=== PATIENT | male | born 1945 | race Caucasian/White ===

== ENCOUNTER 2017-04-03 09:45 | Outpatient (CLI) | payer MEDICARE, OTHER ==
--- NOTE | ~2017-04-03 | HEMODYNAMI ---
PATIENT:JOSÉ MIGUEL SANDERS MEDICAL RECORD: [id number] : 49 LOCATION:DBluCAT ADMISSION DATE: 04/03/17 Generatedon:04/03/201714:14 Patient name: JOSÉ MIGUEL SNADERS Patient #: [id number] SSN: DO B: 1945 Date of study: 04/03/2017 Page: Of Hemodynamic Procedure Report Patient Data Patient Demographics Procedure consent was obtained First Name: JOSÉ MIGUEL Gender: Male Last Name: TOMMY : 1945 [facility] Initial: DANIELLE Age: 71 year(s) Patient #: [id number] Race: Unknown Additional ID: [id number] Contact details Address: [place] [address] State: [place] City: [place] Zip code: [address] Admission Admission Data Admission Date: 04/03/2017 Admission Time: 9:45 Procedure Procedure Types Cath Procedure Diagnostic Procedure LHC LHC w/Coronaries Miscellaneous Procedures Moderate Sedation up to 15 minutes Procedure Description Procedure Date Procedure Date: 04/03/2017 Procedure Start Time: 13:55 Procedure End Time: 14:13 Procedure Staff Name Function Marvin Cooper MD Performing Physician Alyssa Marc RN Nurse Deidra Alatorre RN Nurse Fahad España RT Monitor Irina Augustine RT Scrub Procedure Data Cath Procedure Fluoroscopy Diagnostic fluoroscopy Total fluoroscopy Time: 1.6 time: 1.6 min min Diagnostic fluoroscopy Total fluoroscopy dose: 495 dose: 495 mGy mGy Contrast Material Contrast Material Type Amount (ml) Isovue 300 61 Entry Location Entry Primary Successful Side Size Upsize Upsize Entry Closure Succes sful Closure Location (Fr) 1 (Fr) 2 (Fr) Remarks Device Remarks Femoral Right 5 Fr Exoseal artery Estimated blood loss: 10 ml Diagnostic catheters Device Type Used For End Catheter Placement Cordis 5Fr JL 4.0 Procedure Catheter (MP) Cordis 5Fr 3DRC Catheter Procedure (MP) Cordis 5Fr Pigtail Procedure Catheter (MP) Procedure Complications No complications Procedure Medications Medication Administration Route Dosage 0.9% NaCl I.V. 100 ml/hr Oxygen NC 2 l/min Heparin Flush Bag added to field 2 bags (1000units/500ml NS) Lidocaine 2% added to field 20 Versed I.V. 2 mg Fentanyl I.V. 50 mcg Fentanyl I.V. 50 mcg Versed I.V. 1 mg Fentanyl I.V. 50 mcg Hemodynamics Rest Heart Rate: 46 (bpm) Pressure Samples Time Site Value (mmHg) Purpose Heart Use Rate(bpm) 13:57 AO 108/61(80) Snapshot 44 14:01 LV 112/11,13 Snapshot 49 Gradients Valve Time Site Site Mean SEP/DFP Peak To Heart Use 1 2 (mmHg) (sec/min) Peak Rate (mmHg) (bpm) Aortic 14:02 LV AO 49 Snapshots Pre Cath Intra NCS Post Cath Vital Signs Time Heart Resp SPO2 etCO2 NIBP (mmHg) Rhythm Pain Sedation Rate (ipm) (%) (mmHg) Status Level (bpm) 13:21:20 46 23 98 29.9 149/77(119) NSR 0 (11) 10(A) , No pain 13:25:44 43 18 96 30.7 132/67(122) NSR 0 (11) 10(A) , No pain 13:30:01 42 23 94 37.4 126/68(106) NSR 0 (11) 10(A) , No pain 13:34:15 42 14 95 24.7 114/71(89) NSR 0 (11) 10(A) , No pain 13:38:27 43 12 94 0.7 107/66(84) NSR 0 (11) 10(A) , No pain 13:43:28 43 12 93 0 106/69(88) NSR 0 (11) 10(A) , No pain 13:48:29 38 15 95 33.7 115/64(98) NSR 0 (11) 10(A) , No pain 13:52:40 39 14 94 27.7 116/65(96) NSR 0 (11) 10(A) , No pain 13:56:48 41 12 94 33.6 115/65(87) NSR 0 (11) 10(A) , No pain 14:00:58 48 14 93 8.9 108/69(83) NSR 0 (11) 9(A) , No pain 14:05:00 46 12 94 11.2 109/69(85) NSR 0 (11) 9(A) , No pain 14:09:47 45 15 95 35.9 112/69(97) NSR 0 (11) 9(A) , No pain 14:11:15 44 16 94 35.9 111/70(89) NSR 0 (11) 10(A) , No pain Medications Time Medication Route Dose Verified Delivered Reason Notes Effe ctiveness by by 13:11:29 0.9% NaCl I.V. 100 Marvin Buffie used for ml/hr [place] Marc outsewer 13:11:46 Oxygen NC 2 Marvin Buffie used for l/min [place] Marc outsewer 13:12:39 Heparin Flush added 2 Marvin Buffie used for Bag to bags [place] Marc outsewer (1000units/500ml field RHODES NS) 13:13:24 Lidocaine 2% added 20ml Marvin Marvin for local to vial [facility] anesthetic field MD RHODES 13:54:46 Versed I.V. 2 mg Marvin Buffie for [facility] RN sedation 13:55:10 Fentanyl I.V. 50 Marvin Buffie for mcg [facility] RN sedation 14:02:59 Fentanyl I.V. 50 Marvin Buffie for mcg [facility] RN sedation 14:03:15 Versed I.V. 1 mg Marvin Buffie for [facility] RN sedation 14:05:29 Fentanyl I.V. 50 Marvin Buffie for mcg [facility] RN sedation Procedure Log Time Note 12:50:15 Irina PILLAI(R) sent for patient. Start room use. 13:03:16 Time tracking: Regular hours 13:03:21 Plan of Care:Hemodynamics will remain stable., Cardiac rhythm will remain stable., Comfort level will be maintained., Respiratory function will remain adequate., Patient/ family verbilizes understanding of procedure., Procedure tolerated without complication., Recovers from procedure without complications.. 13:06:48 Patient received from Pre/Post Procedure Room to CCL 1 Alert and oriented. Tansferred to table in Supine position. 13:06:50 Warm blankets applied, and abdoul hugger turned on for patient comfort. 13:06:50 Correct patient and procedure confirmed by team. 13:06:51 Signed procedure consent form obtained from patient. 13:06:52 ECG and BP/O2 sat monitors applied to patient. 13:11:29 0.9% NaCl 100 ml/hr I.V. was administered by Alyssa Marc RN; used for procedure; 13:11:46 Oxygen 2 l/min NC was administered by Alyssa Marc RN; used for procedure; 13:12:39 Heparin Flush Bag (1000units/500ml NS) 2 bags added to field was administered by Alyssa Marc RN; used for procedure; 13:13:24 Lidocaine 2% 20ml vial added to field was administered by Marvin Cooper MD; for local anesthetic; 13:19:03 Vital chart was started 13:20:49 Baseline sample Acquired. 13:20:55 Rhythm: sinus bradycardia 13:20:56 Full Disclosure recording started 13:23:38 H&P Date Dictated: 04/03/2017 New H&P dictated by physician.. 13:23:45 Pre-procedure instructions explained to patient. 13:23:45 Pre-op teaching completed and patient verbalized understanding. 13:24:17 Family in waiting room. 13:24:18 Patient NPO since Midnight. 13:24:19 Is the patient allergic to Iodine/contrast media? No. 13:24:22 Is patient on blood thinner?No 13:24:23 Patient diabetic? No. 13:24:27 Previous problem with sedation/anesthesia? No ? 13:24:34 Snore? No 13:24:35 Sleep apnea? No 13:24:37 Deviated septum? No 13:24:37 Opens mouth fully? Yes 13:24:39 Sticks out tongue? Yes 13:24:47 Airway obstruction? No ? 13:25:09 Dentures? No ? 13:25:13 Pre procedure: right dorsailis pedis pulse 1+ Palpable, but thready & weak; easily obliterated 13:25:19 Modified Neo's test Ulnar > 7 seconds. 13:25:26 FAILED ALLENS 13:25:29 Patient pain scale 0/10 ?. 13:25:34 IV patent on arrival in left forearm with 0.9% NaCl at [facility]. 13:25:36 Lab results completed and on chart. 13:25:40 Right groin area was prepped with chlora-prep and draped in sterile fashion 13:25:41 Alarms reviewed by R. N. 13:25:41 Sharps counted by scrub and verified by R.N. 13:46:36 Zero performed for pressure channel P1 13:47:17 Case delayed due to Physician working in 3. 13:52:54 --------ALL STOP TIME OUT------ 13:52:55 Final Timeout: patient, procedure, and site verified with staff and physician. All members of the team are in agreement. 13:52:58 Right groin site verified by team. 13:53:01 Physical assessment completed. ASA score P 2 - A patient with mild systemic disease as per Marvin Cooper MD. 13:53:04 Sedation plan: IV Moderate Sedation Versed, Fentanyl 13:54:46 Versed 2 mg I.V. was administered by Alyssa Marc RN; for sedation; 13:55:10 Fentanyl 50 mcg I.V. was administered by Alyssa Marc RN; for sedation; 13:55:16 Use device set Femoral Dx 13:55:18 Tegaderm 4 x 4 opened to sterile field. 13:55:19 Acist Hand Control opened to sterile field. 13:55:20 Acist Manifold opened to sterile field. 13:55:21 Acist Syringe opened to sterile field. 13:55:21 Bag Decanter opened to sterile field. 13:55:22 Medline Cath Pack opened to sterile field. 13:55:22 Terumo 5Fr [place] Sheath opened to sterile field. 13:55:23 St Salvador 260cm J .035 wire opened to sterile field. 13:55:24 Diagnostic Infinity 5Fr Multipack catheter opened to sterile field. 13:55:39 Procedure started. 13:55:55 Local anesthetic to right femoral artery with Lidocaine 2% by Marvin Cooper MD.INITIAL ACCESS ONLY 13:56:35 A 5 Fr sheath was inserted into the Right Femoral artery 13:56:47 A Cordis 5Fr JL 4.0 Catheter (MP) was advanced over the wire and used for Procedure. 13:57:58 LCA angiography performed. 13:58:16 Catheter removed. 13:58:21 A Cordis 5Fr 3DRC Catheter (MP) was advanced over the wire and used for Procedure. 13:59:38 RCA angiography performed. 14:00:34 Catheter removed. 14:00:43 A Cordis 5Fr Pigtail Catheter (MP) was advanced over the wire and used for Procedure. 14:01:47 LV angiography performed. 14:01:48 LV gram done using LOPEZ 14:01:56 EF : 55 % 14:02:08 LV hemodynamics recorded. 14:02:11 Injector settings: Ml/sec: 10, Volume: 20, 14:02:12 Catheter removed. 14:02:59 Fentanyl 50 mcg I.V. was administered by Alyssa Marc RN; for sedation; 14:03:15 Versed 1 mg I.V. was administered by Alyssa Marc RN; for sedation; 14:04:46 Sheath removed intact; hemostasis achieved with Exoseal to the Right Femoral artery. 14:04:56 Cordis 5Fr Exoseal opened to sterile field. 14:04:58 Procedure ended.(Physican Out) 14:05:29 Fentanyl 50 mcg I.V. was administered by Alyssa Marc RN; for sedation; 14:05:58 Fluoroscopy time 01.60 minutes. 14:06:04 Fluoroscopy dose: 495 mGy 14:06:04 Flurop Dose total: 495 14:06:24 Contrast amount:Isovue 300 61ml. 14:06:29 Sharps counted by scrub and verified by R.N. 14:06:35 Insertion/operative site no bleeding no hematoma. 14:06:37 Post-op/insertion site Right Femoral artery dressed using a 4 x 4 and Tegaderm. 14:06:38 Post Procedure Pulses reassessed and unchanged 14:06:43 Post-procedure physical assessment completed. ASA score P 2 - A patient with mild systemic disease as per Marvin Cooper MD. 14:06:54 Post procedure rhythm: unchanged. 14:06:56 Estimated blood loss: 10 ml 14:06:57 Post procedure instruction explained to patient.Patient verbalizes understanding. 14:07:00 Patient needs reinforcement of post procedure teaching. 14:09:48 Procedure and supply charges have been captured, reviewed, submitted and are correct. 14:09:51 Procedure Complication : No complications 14:13:43 Vital chart was stopped 14:13:43 See physician's report for complete and final results. 14:13:47 Report given to Pre/Post Procedure Room. 14:13:51 Patient transfered to Pre/Post Procedure Room with Stretcher. 14:13:53 Procedure ended. 14:13:53 Full Disclosure recording stopped 14:13:56 End room use (Document Last) Device Usage Item Name Manufacture Quantity Catalog Hospital Part Current Minimal Lo t# / Number Charge Number Stock Stock Serial# Code Tegaderm 4 1 [id number] [id number] 5 x 4 Acist Hand Acist 1 99308 659034 746281 480568 5 Control Medical Systems Inc Acist Acist 1 94918 585225 618771 084516 5 Manifold Medical Systems Inc Acist Acist 1 54195 512735 896630 947740 20 Syringe Medical Systems Inc Bag Microtek 1 2002S 437803 02434 279216 5 DecZolo [employer] Inc. Medline Cardinal 1 [id number] 852130 22102 102644 5 Cath Pack Health Terumo 5Fr Terumo 1 [id number] 722894 602144 787510 [address] Salvador 1 810890 953654 262421 674932 30 260cm J .035 wire Diagnostic Cardinal 1 [id number] 900543 30087 166988 30 Infinity Health 5Fr Multipack catheter Cordis 5Fr Cardinal 1 037136 5 JL 4.0 Health Catheter (MP) Cordis 5Fr Cardinal 1 279482 5 3DRC Health Catheter (MP) Cordis 5Fr Cardinal 1 429590 5 Pigtail Health Catheter (MP) Cordis 5Fr Cardinal 1 EX500 327820 363362 897417 [address] [facility] Signature Audit [place] Stage Time Signature Unsigned Intra-Procedure 04/03/2017 Fahad España 2:14:34 PM RT(R) Signatures Monitor : Fahad España RT Signature : Date : Time : [address] [address]
[2017-04-03] MEDS ORDERED: ZOCOR20 MG PO (10:42)
[2017-04-03] MEDS ORDERED: DIOVAN160 MG PO (10:43)
[2017-04-03] MEDS ORDERED: HYDROCHLOROTH12.5 M1 PO (10:43)
[2017-04-03 10:51] VITALS: BP 164/68; BMI 30.6
[2017-04-03 10:58] LABS: BASOPHILS 0.3 % (0-2); HEMATOCRIT 46.6 % (42.0-54.0); IMMATURE GRANULOCYTES 0.3 % (0-5); LYMPHOCYTES 20.6 % (15-50); MCH 29.6 pg (26.0-34.0); MCHC 34.3 g/dL (31.0-37.0); MCV 86.1 fL (80.0-100.0); MEAN PLATELET VOLUME 11.2 fL (7.4-10.4); MONOCYTES 6.5 % (2-11); NEUTROPHILS 71.3 % (40-80); PLATELET COUNT 224 10x3/uL (130-400); RBC 5.41 10x6/uL (4.20-6.10); RDW 13.2 % (11.5-14.5); WBC 7.7 10x3/uL (4.8-10.8)
[2017-04-03 11:08] LABS: CALC OSMOLALITY 266 mosm/kg (275-300); CALCIUM 9.2 mg/dL (8.5-10.1); CARBON DIOXIDE 25.9 mmol/L (21.0-32.0); CHLORIDE - SERUM 97 mmol/L (98-107); CREATININE - SERUM 0.9 mg/dL (0.6-1.3); GLUCOSE 103 mg/dL (74-106); POTASSIUM - SERUM 3.9 mmol/L (3.5-5.1); SODIUM 133 mmol/L (136-145); UREA NITROGEN 14 mg/dL (7-18); eGFR NON AFRICAN AMERICAN 89 mL/min (90-120)
--- NOTE | 2017-04-03 15:15 | NUR ---
1435 LYING FLAT, ROOM AIR. SINUS STEVEN ON ARRIVAL, RATE 42 WNO C/O CHEST PAIN. PULSES PALP X 4. R GROIN 5F EXOSEAL C/D/I W NO HEMATOMA OR BLEEDING. AT BEDSIDE. DR. CASEY AT BEDSIDE TO DISCUSS FINDINGS. WILL CONTINUE TO MONITOR CLOSELY.
--- NOTE | 2017-04-03 15:17 | NUR ---
1505 RESTING WITH EYES CLOSED. REMAINS SINUS STEVEN, RATE 40 WNO C/O CHEST PAIN. PULSES PALP X 4. R GROIN 5F EXOSEAL C/D/I W NO HEMATOMA OR BLEEDING.
--- NOTE | 2017-04-03 16:04 | NUR ---
HOB ELEVATED. PIV REMOVED FROM LEFT WRIST WITH BANDAID APPLIED. UP TO BEDSIDE TO DRESS.
--- NOTE | 2017-04-03 16:25 | NUR ---
CAB CALLED TO DIESEL MOTOR MECHANIC PATIENT AND . D/C INSTRUCTIONS DISCUSSED. AMBULATED TO BATHROOM TO VOID. R GROIN REMAINS C/D/I W NO HEMATOMA OR BLEEDING. WHEELED OUT VIA WHEELCHAIR. D/C VIA CAB.
--- NOTE | 2017-04-04 13:05 | HP ---
PATIENT: JOSÉ MIGUEL SANDERS MEDICAL RECORD: [id number] ACCOUNT: [id number] LOCATION:OWN : 49 ADMISSION DATE: 04/03/17 HISTORY AND PHYSICAL EXAMINATION HISTORY OF PRESENT ILLNESS: He is a 71-year-old gentleman with a history of chest pain, hypertension, hyperlipidemia seen initially in clinic who underwent stress testing at [place] and found to be positive and he was admitted for diagnostic angiography to delineate anatomy. PAST MEDICAL HISTORY: History of hypertension and hyperlipidemia. MEDICATIONS: Include trazodone 50 q.h.s., simvastatin 10 mg every day, valsartan 160 every day. SOCIAL HISTORY: Lives in [place]. Nonsmoker. He is able to take care of his ADLs. PHYSICAL EXAMINATION: GENERAL: Pleasant gentleman in no acute distress, appears stated age. HEENT: Normocephalic, atraumatic. NECK: No JVD or bruit. HEART: Regular. LUNGS: Clark clear. ABDOMEN: Soft, nontender. EXTREMITIES: Pulse 2+ with no edema. IMPRESSION: Angina symptomatology with positive noninvasive study. PLAN: For angiography and intervention based on above. TRANSINT:[id number] Voice Confirmation ID: [id number] DOCUMENT ID: [id number] LUDIVINA RUSSELL MD at 1305 CC: [id number] DICTATION DATE: 04/03/17 1325 AD TRAFFICKER: 04/03/17 1402 DEP CLI 04/03/17 [place] [id number]
--- NOTE | 2017-04-13 13:50 | OP ---
PATIENT NAME: JOSÉ MIGUEL SANDERS MEDICAL RECORD: [id number] :[birth year] LOCATION:D.CAT ADMISSION DATE: SURGEON: LUDIVINA RUSSELL MD DATE OF OPERATION: 04/03/2017 PROCEDURE: Left heart catheterization, selective coronary angiography, right femoral artery approach. CATHETERS: A 5-Wolof sheath, 5/4 Joy, 5/4 pig. The procedure was well tolerated and the patient was returned to lai, sheath removed. ExoSeal device placed. FINDINGS: Left ventriculography in the 30-degree LOPEZ view: Normal wall motion, normal systolic function. CORONARY ANATOMY. LEFT MAIN: Left main is free of disease. LAD: Has a diffuse proximal stenosis and its distal portion has about 80% stenosis. There is a secondary stenosis at the mid portion of the vessel about 90%. CIRCUMFLEX: There is a high ramus OM branch that has severe diffuse stenosis up to the ostium. The distal stenosis portion is greater than 90% with good target distally. RIGHT CORONARY: Dominant artery that gives rise to PDA and shows mid portion stenosis with about 70% but with a poor target distally. IMPRESSION: Multivessel coronary artery disease. Normal systolic function. We will Dr. Lizama for possible coronary bypass grafting. TRANSINT:[id number] Voice Confirmation ID: [id number] DOCUMENT ID: [id number] LUDIVINA RUSSELL MD at 1350 CC: [id number] DICTATION DATE: 04/10/17 1555 DIRECTOR CORPORATE: 04/10/17 2148 DEP CLI 04/03/17 [place] [place] [address]
[2017-04-21] MEDS ORDERED: OMEGA-3100 MG PO (10:44)
[2017-04-21] MEDS ORDERED: BAYER CHEWABLE81 MG PO (10:44)
[2017-04-21] MEDS ORDERED: MELATONIN 3 MG1 TAB PO (10:45)
[2017-04-21] MEDS ORDERED: CENTRUM SILVER1 TA1 PO (10:46)
== END 2017-04-03 16:27 | disposition home or self-care (01) ==
LOC: D.CATH 09:45
PROVIDERS: Internal Medicine Interventional Cardiology
DX: I25.10 Atherosclerotic heart disease of native coronary artery without angina pectoris (principal); I10 Essential (primary) hypertension; E78.5 Hyperlipidemia, unspecified; R94.30 Abnormal result of cardiovascular function study, unspecified; R07.9 Chest pain, unspecified; Z01.812 Encounter for preprocedural laboratory examination

== ENCOUNTER → 2017-04-17 16:22 | Outpatient (CLI) | payer MEDICARE, OTHER ==
[2017-04-03 10:51] VITALS: BMI 30.6
[~2017-04-17 16:22] MED LIST: BAYER CHEWABLE81 MG PO; CENTRUM SILVER1 TA1 PO; COLACE100 MG PO; CORDARONE200 MG PO; DIOVAN160 MG PO; ELIQUIS5 MG PO; HEMOCYTE PLUS C1 CAP PO; HYDROCHLOROTH12.5 M1 PO; KLOR-CON M2020 MEQ PO; LASIX40 MG PO; MELATONIN 3 MG1 TAB PO; OMEGA-3100 MG PO; SENOKOT-S TABLE1 TAB PO; ZOCOR20 MG PO
[2017-04-19 06:14] LABS: HEPATITIS C ANTIBODY <0.1 (0.0-0.9)
== END | disposition home or self-care (01) ==
LOC: D.US 16:00
PROVIDERS: Internal Medicine Cardiovascular Disease
DX: Z01.812 Encounter for preprocedural laboratory examination (principal); R01.1 Cardiac murmur, unspecified; I65.23 Occlusion and stenosis of bilateral carotid arteries

== ENCOUNTER 2017-04-24 05:27 | Inpatient (IN) | payer MEDICARE, OTHER ==
--- NOTE | 2017-04-20 12:37 | HP ---
PATIENT: JOSÉ MIGUEL SANDERS MEDICAL RECORD: [id number] ACCOUNT: [id number] LOCATION:[facility] : [birth year] ADMISSION DATE: 04/24/17 HISTORY AND PHYSICAL EXAMINATION NameJOSÉ MIGUEL SANDERS (71yo, M) ID# [id number]. Date/Time04/17/2017 03:60HFOEF38 1945Service Dept.[facility]PP[facility] ClinicProviderEDXIOMARA CALDWELL MDInsuranceMed Primary: [place] Insurance # : [id number] Referring Provider Name : MAGDALENA RUSSELL Employer Name : UNKNOWN Med Secondary: [employer] Insurance # : [id number] Policy/Group # : [id number] Employer Name : UNKNOWN Prescription: CMX - Member is eligible. Chief Complaint Coronary artery disease eval for CABG [facility] 04/03/[address] [facility] Patient's Care Team Referring Provider (): MAGDALENA RUSSELL: [address] [place] [address], [place] [address], , Gum Maker: LUDIVINA RUSSELL MD Patient's Pharmacies [facility] [address] [place] [address] [place] [address], , Vitals BP:140/78 sitting L arm 04/17/2017 03:02 pm 136/80 sitting R arm 04/17/2017 03:04 pmBP Cuff Size:adult 04/17/2017 03:02 pm adult 04/17/2017 03:04 pmHR:60,reg 04/17/2017 03:04 pmHt:6 ft 04/17/2017 03:04 pmWt:220 lbs 04/17/2017 03:04 pmNotes:initially noted feeling tired all the time. About six months ago. Eventually got to Dr Russell and had chest pain with stress test. Denies having had chest pain other than with the stress test.04/17/2017 03:06 pmBMI:29.8 04/17/2017 03:04 pmAllergies Reviewed Allergies NKDAMedications Reviewed Medications simvastatin 20 mg tablet start filledKathy Wilsonvalsartan 160 mg-hydrochlorothiazide 12.5 mg expmwp64/18/17 filledCaremarkProblems Reviewed Problems Coronary arteriosclerosis - Onset: 04/05/2017 Family History Discussed Family History Father- Myocardial infarctionSocial History Discussed Social History Cardiology Family history of heart disease?: Y Smoking Status: Former smoker High Cholesterol: Y High blood pressure: Y Diabetes: N HISTORY AND PHYSICAL [id number] JOSÉ MIGUEL SANDERS Is blood transfusion acceptable in an emergency?: Y Surgical History Reviewed Surgical History Other - tonsillectomy Other - rotator cuff surgery Other - ankle repalcement Past Medical History Discussed Past Medical History Arrhythmia: Y - Bradycardia Heart Disease: Y High Blood Pressure: Y Hyperlipidemia: Y Hypertension: Y Palpitation: Y Documents for Discussion N/A Screening None recorded. HPI Coronary Artery Disease F/U Reported by patient. Severity: no chest discomfort with daily activities; carrying Logs and stressed test gives him chest Context: non-smoker Associated Symptoms: mostly complains of feeling very tired occlusive coronary artery disease with angina pectoris ROS Patient reports exercise intolerance but reports no fever, no night sweats, no significant weight gain, and no significant weight loss. He reports chest pain on exertion and shortness of breath when walking but reports no arm pain on exertion, no shortness of breath when lying down, no palpitations, and no known heart murmur. He reports shortness of breath but reports no cough, no wheezing, and no coughing up blood. He reports muscle aches but rep orts no muscle weakness, no arthralgias/joint pain, no back pain, and no swelling in the extremities. He reports no dry eyes, no irritation, and no vision change. He reports no difficulty hearing and no ear pain. He reports no frequent nosebleeds and no n o se/sinus problems. He reports no sore throat, no bleeding gums, no snoring, no dry mouth, no mouth ulcers, no oral abnormalities, and no teeth problems. He reports no jugular vein distension and no swollen glands. He reports no abdominal pain, no vomiting , normal appetite, no diarrhea, not vomiting blood, no nausea, and no constipation. He reports no incontinence, no difficulty urinating, no hematuria, and no increased frequency. He reports no abnormal mole, no jaundice, and no rashes. He reports no loss o f consciousness, no weakness, no numbness, no seizures, no dizziness, and no headaches. He reports no depression, no sleep disturbances, feeling safe in relationship, and no alcohol abuse. He reports no fatigue. He reports no swollen glands and no bruising . He reports no runny nose, no sinus pressure, no itching, no hives, and no frequent sneezing. ROS as noted in the HPI Physical Exam Patient is a 71-year-old male. Constitutional: General Appearance well nourished and developed and healthy-appearing. Level of Distress NAD. Ambulation ambulating normally. HISTORY AND PHYSICAL [id number] JOSÉ MIGUEL SANDERS Cardiovascular: Apical Impulse not displaced or no thrill. Heart Auscultation normal s1 and s2; no murmurs, rubs, or gallops; and RRR. Arterial Pulses no abdominal aor ta bruits, femoral bruits, or popliteal bruits and 2+ bilateral, carotid 2+ bilateral, femoral 2+ bilateral, popliteal 2+ bilateral, and dorsalis pedis 2+ bilateral. Edema no edema or varicosities. Lungs: Repiratory Effort no dyspnea. Percussion no hyperr esonance or dullness or flatness. Auscultation no wheezing, rhonchi, or rales / crackles and breathing sounds normal, good air movement, and CTA except as noted. Abdomen: Bowl Sounds normal. Inspection and Palpation no tenderness, guarding, masses, or rebound tenderness and soft and non-distended. Liver non-tender and no hepatomegaly. Spleen non-tender and no splenomegaly. Hernia none palpable. Musculoskeletal System: Gait And Stance normal gait and stance. Digits and Nails normal nails and no cyanosis. Neurologic: Cranial Nerves grossly intact. Reflexes DTRs 2+ bilaterally throughout. Sensation grossly intact. Lymph Nodes: Lymph Nodes no cervical LAD, supraclavicular LAD, axillary LAD, or inguinal LAD. Eyes: Lids and Conjunctivae no discharge or pallor and non-injected. Pupils PERRLA. Cornea grossly intact. EOM EOMI. Lens clear. Sclerae non-icteric. Neck: Neck no masses, enlarged lymph nodes, or carotid bruits and supple and trachea midline. Thyroid no enlargement or nodules and non-tender. Skin: Inspection and Palpation no rash, lesions, ulcers, jaundice, or abnormal nevi. Assessment / Plan atherosclerosis coronary arteries with chest pain 1. Coronary arteriosclerosis I25.10: Atherosclerotic heart disease of [place] coronary artery without angina pectoris Discussion Notes I have discussed the patient's disease process with him in detail as well as the alternative methods of treatment we discussed coronary artery bypass including the expected benefits a nd risk which included bleeding, infection, stroke, , M.D. imponderables. He understands all of the above and wishes to proceed with planned surgery. Therefore we will obtain a carotid Doppler study today hepatitis screen Surgery will be scheduled for March2017 HISTORY AND PHYSICAL [id number] JOSÉ MIGUEL SANDERS EDWARD MD at 1237 CC: [id number] DICTATION DATE: 04/17/17 1500 PHYSICAL LABORATORY ASSISTANT: LUCAS 04/18/17 114[address] [place] [id number] [place] [address]
[2017-04-21 10:25] LABS: BASOPHILS 0.1 % (0-2); HEMOGLOBIN 16.5 g/dL (13.5-17.5); IMMATURE GRANULOCYTES 0.1 % (0-5); LYMPHOCYTES 22.2 % (15-50); MCH 29.7 pg (26.0-34.0); MCHC 34.4 g/dL (31.0-37.0); MCV 86.5 fL (80.0-100.0); MEAN PLATELET VOLUME 11.4 fL (7.4-10.4); MONOCYTES 6.8 % (2-11); NEUTROPHILS 69.8 % (40-80); PLATELET COUNT 235 10x3/uL (130-400); RBC 5.55 10x6/uL (4.20-6.10); RDW 13.2 % (11.5-14.5); WBC 7.8 10x3/uL (4.8-10.8)
[2017-04-21 10:37] LABS: HEMOGLOBIN A1C 5.3 % (4.8-6.0)
[2017-04-21 10:44] LABS: APTT 28.5 SECONDS (22.8-39.4); INR 0.96 (0.85-1.17); PROTIME 12.6 SECONDS (11.6-15.0)
[2017-04-21 11:13] LABS: ALBUMIN 4.1 g/dL (3.4-5.0); ANION GAP 14.7 mmol/L (8-16); BILIRUBIN - TOTAL 0.5 mg/dL (0.2-1.3); CALCIUM 9.4 mg/dL (8.5-10.1); CARBON DIOXIDE 26.3 mmol/L (21.0-32.0); CREATININE - SERUM 1.1 mg/dL (0.6-1.3); PHOSPHOROUS 3.5 mg/dL (2.5-4.9); PROTEIN - SERUM 7.8 g/dL (6.4-8.2); T4 THYROXIN - FREE 1.2 ng/dL (0.76-1.46); THYROID STIMULATING HORMONE 1.17 uIU/mL (0.36-3.74); URIC ACID 5.4 mg/dL (2.6-7.2)
[2017-04-21 12:12] LABS: COLD SCREEN @ 4 DEGREES NEGATIVE (NEGATIVE); COLD SCREEN ROOM TEMP NEGATIVE (NEGATIVE)
[2017-04-21 12:47] LABS: APPEARANCE CLEAR (CLEAR); BILIRUBIN NEGATIVE (NEGATIVE); COLOR DK YELLOW (YELLOW); GLUCOSE NEGATIVE (NEGATIVE); KETONE NEGATIVE (NEGATIVE); NITRITE NEGATIVE (NEGATIVE); PROTEIN NEGATIVE (NEGATIVE); UROBILINOGEN NORMAL (NORMAL)
[~2017-04-24] VITALS: Ht 182.9 cm; Wt 102.9 kg
[2017-04-24] VITALS (35 sets, daily range): BP systolic 89–147; BP diastolic 60–82; BMI 29.5; BMI 29.3
[~2017-04-24 05:27] MED LIST changes: -COLACE100 MG PO; -CORDARONE200 MG PO; -ELIQUIS5 MG PO; -HEMOCYTE PLUS C1 CAP PO; -KLOR-CON M2020 MEQ PO; -LASIX40 MG PO; -SENOKOT-S TABLE1 TAB PO
[2017-04-24 08:16] LABS: PLT FUNCT.(P2Y12) PLAVIX 254 PRU (194-418)
[2017-04-24 15:40] LABS: HEMATOCRIT 34.6 % (42.0-54.0); HEMOGLOBIN 11.7 g/dL (13.5-17.5); MCH 29.2 pg (26.0-34.0); MCHC 33.8 g/dL (31.0-37.0); MCV 86.3 fL (80.0-100.0); MEAN PLATELET VOLUME 11.3 fL (7.4-10.4); RBC 4.01 10x6/uL (4.20-6.10); RDW 13.1 % (11.5-14.5); WBC 16.3 10x3/uL (4.8-10.8)
[2017-04-24 15:43] LABS: PLATELET COUNT 92 10x3/uL (130-400)
[2017-04-24 15:45] LABS: APTT 39.2 SECONDS (22.8-39.4); INR 1.82 (0.85-1.17)
[2017-04-24 15:47] LABS: CARBON DIOXIDE 28.1 mmol/L (21.0-32.0); CHLORIDE - SERUM 108 mmol/L (98-107); CREATININE - SERUM 0.7 mg/dL (0.6-1.3); SODIUM 145 mmol/L (136-145); UREA NITROGEN 8 mg/dL (7-18); eGFR NON AFRICAN AMERICAN > 90 mL/min (90-120)
[2017-04-24 15:49] LABS: CALC OSMOLALITY 290 mosm/kg (275-300); GLUCOSE 162 mg/dL (74-106)
[2017-04-24 15:50] LABS: CALCIUM 5.9 mg/dL (8.5-10.1)
[2017-04-24 16:20] LABS: PLATELET ESTIMATE DECREASED
--- NOTE | 2017-04-24 16:30 | NUR ---
1618 PT ARRIVED TO ROOM FROM O.R. MONITORING EQUIPMENT APPLIED. PT INTUBATED WITH 8.0 ETT 22 AT THE LIP. HAS CHEST TUBE X3, NO AIRLEAK NOTED. TEMP PACER DDD 100 10,10. FAY CATHETER, BLUE/GREEN URINE NOTED. LEFT SUBCLAVIAN CENTRAL LINE, RIGHT IJ SWAN, RIGHT RADIAL ART LINE. PT IS ON PLASMALYTE, DOPAMINE, LEVOPHED, VASOPRESSIN, METHYLENE BLUE.
--- NOTE | 2017-04-24 19:20 | NUR ---
REC'D PT ON VENT VIA 8.0 ETT TAPED @ 22CM LIPLINE, SEE FLOWSHEET FOR VENT SETTINGS, AROUSABLE ON VENT FOLLOWING COMMANDS AT THIS TIME, OGT TAPED SECURELY TO ETT PLACEMENT VERIFIED VIA SM AIR BOLUS AUSCULTATED OVER EPIGASTRIM, MIDSTERNAL DRSG CDI, RIJ SWAN GÉNESIS DRSG CDI SITTING AT APPROX 55CM, SEE FLOWSHEET FOR DRIPS, LDLSCL DRSG CDI SEE FLOWSHEET FOR GTTS, RIGHT RADIAL VAN WITH FLEXION BOARD IN USE, LINES LEVELED AND ZEROED WITH RETURN OF APPROPRIATE WAVEFORM, SUBSTERNAL DRSG CDI MEDIASTINAL CT'S X [address] X 1 ALL TO 20CM H2O SUCTION, SANGUINOUS DRAINAGE NOTED, NO AIR LEAK, COBAN DRSG TO RIGHT LEG CDI, SAL DRAINS COMPRESSED X 2 WITH SANGUINOUS DRAINAGE, CRITICORE FAY PATENT DRAINING BLUE GREEN URINE, RAO AND SCD TO LEFT LEG, PPP, BILAT SOFT WRIST RESTRAINTS X 2, 1:[address].
--- NOTE | 2017-04-24 20:00 | NUR ---
RT AT BS, VENT RATE DECREASED TO 10, PT RESTING EYES CLOSED, AWAKENS EASILY, ORAL CARE PROVIDED AND FACE WASHED, VSS.
--- NOTE | 2017-04-24 21:05 | NUR ---
RT AT BS, PT PLACED ON CPAP, RESP RATE 20, BP STABLE, PT CALM AND COOPERATIVE, PT MOTIONING FOR EXCESS COVERS TO BE REMOVED, TEMP 37.3, BLANKETS AND HEAVENLY HUGGER SHEET REMOVED FOR PT COMFORT.
--- NOTE | 2017-04-24 21:15 | NUR ---
DR. CALDWELL UPDATED AND CURRENT ABG VALUE GIVEN, NO NEW ORDERS AT THIS TIME.
--- NOTE | 2017-04-24 22:41 | NUR ---
MORPHINE GARMENT ALTERATION EXAMINER INTITIATED AND PT PROVIDED INSTRUCTIONS FOR USE, PT NODDED IN UNDERSTANDING AND DEMONSTRATED PROPER USE OF GARMENT ALTERATION EXAMINER BUTTON.
--- NOTE | 2017-04-24 23:05 | NUR ---
REASSESSMENT COMPLETE, VSS, PT AWAKE AND ALERT, ICE CHIPS PROVIDED ON REQUEST, PT DENIES NAUSEA, ANODE WORKER BUTTON IN REACH.
[2017-04-25] VITALS (102 sets, daily range): BP systolic 90–141; BP diastolic 46–67; Ht 182.9 cm; Wt 102.9 kg
--- NOTE | 2017-04-25 01:35 | NUR ---
PT WITH FREQUENT PVC'S, PT RESTING IN BED EYES CLOSED, URINE OUTPUT REMAINS INCREASED, SERUM POTASSIUM DRAWN AND SENT TO LAB.
--- NOTE | 2017-04-25 01:50 | NUR ---
SERUM POTASSIUM 2.9, POTASSIUM BEGUN PER S/S
--- NOTE | 2017-04-25 02:35 | NUR ---
RT AT BS AFTER BREATHING TX, PT PULLING 750-1000, WEAK COUGH NOTED, PT ENCOURAGED TO DEEP BREATH AND COUGH WHILE SPLINTING WITH PILLOW, PREVIOUSLY SHOWN SPLINTING TECHNIQUES AFTER EXTUBATION, PT DENIES PAIN OR NAUSEA, WILL MONITOR CLOSELY FOR CHANGES.
--- NOTE | 2017-04-25 03:45 | NUR ---
RADIOLOGY AT FOR AM CXR, PT TOLERATED WELL REPOSITIONED FOR COMFORT ONTO LEFT SIDE PER REQUEST.
--- NOTE | 2017-04-25 05:00 | NUR ---
AM EKG OBTAINED ORDERED, COMPLETE BATH AND LINEN CHANGE PROVIDED WITH CHLORIHEXIDINE WIPES, FAY CARE PROVIDED, PT REPOSITIONED UP IN BED AND ONTO BACK, ARMS ELEVATED ON PILLOWS FOR COMFORT, SIPS OF WATER PROVIDED, TOLERATED WELL.
[2017-04-25 06:28] LABS: HEMATOCRIT 28.2 % (42.0-54.0); HEMOGLOBIN 9.7 g/dL (13.5-17.5); MCHC 34.4 g/dL (31.0-37.0); MCV 84.4 fL (80.0-100.0); RBC 3.34 10x6/uL (4.20-6.10); RDW 14.1 % (11.5-14.5); WBC 18.6 10x3/uL (4.8-10.8)
[2017-04-25 06:29] LABS: MEAN PLATELET VOLUME 10.9 fL (7.4-10.4)
[2017-04-25 07:04] LABS: ALBUMIN 3.1 g/dL (3.4-5.0); ANION GAP 11.2 mmol/L (8-16); BILIRUBIN - TOTAL 1.31 mg/dL (0.2-1.3); CALCIUM 7.6 mg/dL (8.5-10.1); CARBON DIOXIDE 28.4 mmol/L (21.0-32.0); CREATININE - SERUM 1.1 mg/dL (0.6-1.3); POTASSIUM - SERUM 3.6 mmol/L (3.5-5.1); PROTEIN - SERUM 4.8 g/dL (6.4-8.2)
--- NOTE | 2017-04-25 07:26 | NUR ---
REPORT RECEIVED. ASSUMED CARE OF PATIENT. PT AWAKE AND CONVERSANT. BREATHING TREATMENT IN PROGRESS. REPOSITIONED FOR COMFORT. SHIFT ASSESSMENT COMPLETE. SEE FLOWSHEE FOR DETAILS.
--- NOTE | 2017-04-25 07:30 | NUR ---
ORAL CARE DONE POST TX
--- NOTE | 2017-04-25 09:35 | NUR ---
PT REPOSITIONED FOR COMFORT TO RIGHT SIDE. MORNING MEDICATIONS PROVIDED. INCENTIVE SPIROMETRY PERFORMED. 1000 REACHED. FAN PROVIDED FOR COMFORT.
--- NOTE | 2017-04-25 10:23 | NUR ---
BREATHING TREATMENT IN PROGRESS. PT IS RESTLESS. CONSTANTLY MOVING/KICKING LEGS OR TAPPING TOES. HAS DONE THIS SINCE START OF SHIFT. DENIES PAIN. SAYS IS AN ACTIVE PERSON AND NOT USED TO STAYING IN ONE PLACE VERY LONG.
--- NOTE | 2017-04-25 11:08 | NUR ---
FAMILY AT BEDSIDE. UPDATE PROVIDED.
--- NOTE | 2017-04-25 12:24 | NUR ---
FAMILY HAS LEFT FOR PATIENT TO REST. PT REPOSITIONED FOR COMFORT.
--- NOTE | 2017-04-25 13:20 | NUR ---
Unable to assess DC plans/needs @ this time. Patient sleeping. No family present.
--- NOTE | 2017-04-25 14:39 | NUR ---
DR RUSSELL BY TO SEE PATIENT
--- NOTE | 2017-04-25 16:00 | NUR ---
LEVOPHED HAS BEEN WEANED OFF. RIGHT LEG DRESSINGS CHANGED PER ORDER.
--- NOTE | 2017-04-25 16:19 | NUR ---
DR CALDWELL ASKED FOR BLOOD GAS. THERAPIST IN ER WHEN CALLED. NOW AT BEDSIDE FOR DRAW.
--- NOTE | 2017-04-25 16:44 | NUR ---
SAMPLE OBTAINED FOR HEMOGRAM TO DOUBLE CHECK H&H VALUE FROM ABG BEFORE INITIATING PRBC ADMINISTRATION.
--- NOTE | 2017-04-25 17:28 | NUR ---
RESULTS NOT YET POSTED FOR HEMOGRAM. SHOWS PENDING. CALLED LAB. OLESYA GAVE THE FOLLOWING VALUES 6.5 AND 19.3. LET HER KNOW WILL NEED 2 UNITS.
[2017-04-25 17:29] LABS: MCH 28.6 pg (26.0-34.0); MCHC 33.7 g/dL (31.0-37.0); MEAN PLATELET VOLUME 11.5 fL (7.4-10.4); RDW 14.4 % (11.5-14.5)
[2017-04-25 17:30] LABS: HEMATOCRIT 19.3 % (42.0-54.0); HEMOGLOBIN 6.5 g/dL (13.5-17.5); RBC 2.27 10x6/uL (4.20-6.10); WBC 13.1 10x3/uL (4.8-10.8)
--- NOTE | 2017-04-25 17:48 | NUR ---
FIRST UNIT PRBC STARTED
--- NOTE | 2017-04-25 18:00 | NUR ---
2ND UNIT PRBC STARTED. DRESSING TO CHEST/ABDOMEN CHANGED PER ORDER. STS PAPERWORK UPDATED.
--- NOTE | 2017-04-25 18:32 | NUR ---
BREATHING TREATMENT COMPLETED. WORKING ON INCENTIVE SPIROMETRY.
--- NOTE | 2017-04-25 18:50 | NUR ---
DAUGHTER CALLED TO CHECK ON PT. UPDATE PROVIDED ABOUT BLOOD ADMINISTRATION. PT SLEEPING AT THIS TIME. SHE WILL CALL BACK LATER THIS EVENING TO SEE HOW HE IS DOING.
--- NOTE | 2017-04-25 19:30 | NUR ---
REPORT REC'D AND CARE ASSUMED, REC'D PT RESTING IN BED EYES CLOSED, AWAKENS TO VERBAL STIMULI, ORIENTED X 3, O2 @ 4LITERS VIA NC, RIJ ANA CAPPS DRS CDI, PROXIMAL INFUSION WITH PLASMALYTE @ 100CC/HR AND DOPAMINE @ 4MCG/KG/MIN OR 15CC, INSULIN @ 4UNITS/HR, MIDSTERNAL DRSG CDI, RIGHT RADIAL VAN WITH FLEXION BOARD IN USE, LINES LEVELED AND ZEROED WITH RETURN OF APPROPRIATE WAVEFORM, SUBSTERNAL DRSG CDI, CT'S 3 TO 20CM H2O SUCTION, SEROSANGUINOUS DRAINAGE PRESENT, NO AIR LEAK NOTED, LDLSCL DRSG CDI WITH BURETROL @ 10CC/HR AND MORPHINE CO CHAIRMAN, EXTERNAL P/M WIRES TAPED SECURELY TO UPPER ABD, EXTERNAL P/M VVI 60 VMA 10, CM-SR @ 85, ABD SOFT, BS X 4, CRITICORE FAY PATENT DRAINING BLUE/GREEN URINE, RIGHT LEG DRSGS CDI, SAL DRAINS X 2 TO BULB SUCTION WITH SMALL AMOUNT BLOODY DRAINAGE NOTED, TEDS/SCDS INTACT, PPP, SR UP X 2, 1:[address]WAY.
--- NOTE | 2017-04-25 20:00 | NUR ---
EVENING TRAY REMOVED FROM BS, PT CONSUMED O%, STATES " I AM JUST NOT HUNGRY RIGHT NOW", INSTRUCTED PT TO LET NURSE KNOW IF HE WANTED A SNACK LATER, VERBALIZED UNDERSTANDING.
--- NOTE | 2017-04-25 20:15 | NUR ---
FSBS 116, INSULIN GTT CONTINUES @ 4 UNITS/HR, PT DENIES NEEDS
--- NOTE | 2017-04-25 20:53 | NUR ---
REC'D PHONE CALL FROM PT'S AND DAUGHTER, UPDATE PROVIDED AND QUESTIONS ANSWERED.
--- NOTE | 2017-04-25 21:15 | NUR ---
EVENING MEDS GIVEN, PT REPOSITIONED ONTO RIGHT SIDE SUPPORTED WITH PILLOWS, USING DRY PAN FEEDER BUTTON FOR DISCOMFORT, SBP 90'S , WEANING DOPAMINE TOLERATED.
--- NOTE | 2017-04-25 22:40 | NUR ---
BREATHING TX COMPLETED, PT PULLING 750 ON IS, COUGHING AND DEEP BREATHING DONE, PT REPOSITIONED UP IN BED AND ONTO BACK.
--- NOTE | 2017-04-25 23:00 | NUR ---
REASSESSMENT COMPLETED, VSS, ATTEMPTING TO WEAN DOPAMINE TOLERATED.
[2017-04-26] VITALS (96 sets, daily range): BP systolic 82–141; BP diastolic 46–71
--- NOTE | 2017-04-26 01:00 | NUR ---
PT AWAKE, ASSISTED TO REPOSITION FOR COMFORT, STATES " I AM TIRED OF LAYING IN THIS BED" EXPLAINED THAT LATER IN THE DAY WOULD BE ABLE TO GET OOB TO A CHAIR, ICE WATER PROVIDED ON REQUEST, DENIES FURTHER NEEDS.
--- NOTE | 2017-04-26 01:30 | NUR ---
SCDS AND TEDS REMOVED FOR BREAK AND PT COMPLAINT OF BEING HOT
--- NOTE | 2017-04-26 03:00 | NUR ---
REASSESSMENT COMPLETED, NO CHANGES FROM PREVIOUS ASSESSMENT, CONTINUING TO WEAN DOPAMINE, PT DENIES NEEDS.
--- NOTE | 2017-04-26 03:30 | NUR ---
RADIOLOGY @ BS FOR AM CXR.
--- NOTE | 2017-04-26 03:45 | NUR ---
BP DECREASED AFTER CXR, VAN READJUSTED, BP REMAINS 70'S -80'S SBP, RT NOTIFIED OF NEED FOR ABG, PT AWAKE AND TALKING, DENIES PAIN AT THIS TIME.
--- NOTE | 2017-04-26 03:50 | NUR ---
DR. CALDWELL CALLED REGARDING DECREASED BP, ABG VALUES GIVEN, ORDER REC'D TO INCREASE DOPAMINE TO 5MCG/KG/MIN.
--- NOTE | 2017-04-26 04:05 | NUR ---
BP 98/50, PT RESTING EYES CLOSED, RESP EVEN AND UNLABORED, TAPAN MONITOR CLOSELY FOR CHANGES.
--- NOTE | 2017-04-26 05:30 | NUR ---
O2 SAT DECREASED TO 88%, PT AWAKENED AND REPOSITIONED UP IN BED, PT PULLING 750 WITH OCCASIONAL 1000 NOTED, PT ATTEMPTED A WEAK COUGH, PT ENCOURAGED TO TAKE A DEEP BREATH IN AND COUGH DEEPLY, PT AFTER TWO ATTEMPTS ABLE TO PRODUCE PRODUCTIVE COUGH, FACIAL GRIMACING NOTED, PT REMINDED TO USE ANIMAL SHELTER CLERK BEFORE AND AFTER IS AND DEEP BREATHING AND COUGHING, O2 SAT 91%, WILL CONT TO MONITOR .
--- NOTE | 2017-04-26 06:15 | NUR ---
AM LABS DRAWN FROM [facility] AND SENT TO LAB, SMITH PEREZ DRSG WITH SMALL AMOUNT BLOODY DRAINAGE, SITE CLEANED WITH CHLORAPREP AND BIOPATCH APPLIED, COVERED WITH TEGADERM, LDLSCL DRSG CHANGED PER PROTOCOL, PT DENIES NEEDS.
[2017-04-26 06:44] LABS: HEMATOCRIT 27.6 % (42.0-54.0); HEMOGLOBIN 9.5 g/dL (13.5-17.5); MCH 29.3 pg (26.0-34.0); MCHC 34.4 g/dL (31.0-37.0); MCV 85.2 fL (80.0-100.0); MEAN PLATELET VOLUME 11.8 fL (7.4-10.4); RBC 3.24 10x6/uL (4.20-6.10); RDW 14.9 % (11.5-14.5); WBC 15.3 10x3/uL (4.8-10.8)
[2017-04-26 07:22] LABS: ALBUMIN 3.7 g/dL (3.4-5.0); ALKALINE PHOSPHATASE 39 U/L (46-116); ALT (SGPT) 33 U/L (10-68); BILIRUBIN - TOTAL 1.04 mg/dL (0.2-1.3); CALC OSMOLALITY 275 mosm/kg (275-300); CARBON DIOXIDE 26.8 mmol/L (21.0-32.0); CHLORIDE - SERUM 100 mmol/L (98-107); GLUCOSE 130 mg/dL (74-106); POTASSIUM - SERUM 4.1 mmol/L (3.5-5.1); PROTEIN - SERUM 5.6 g/dL (6.4-8.2); SODIUM 136 mmol/L (136-145); UREA NITROGEN 17 mg/dL (7-18); eGFR NON AFRICAN AMERICAN 79 mL/min (90-120)
--- NOTE | 2017-04-26 07:35 | NUR ---
ORAL CARE DONE WITH PERIDEX
--- NOTE | 2017-04-26 07:41 | NUR ---
REPORT RECEIVED. ASSUMED CARE OF PATIENT. IS ALERT AND CONVERSANT THIS MORNING. BREATHING TREATMENT COMPLETE. INCENTIVE SPIROMETRY PERFORMED. 750-1000. SHIFT ASSESSMENT COMPLETE. SEE FLOWSHEET FOR FINDINGS. PT DENIES NEEDS AT THIS TIME. FRESH ICE WATER PROVIDED TO HIM. CALL BUTTON IN REACH.
--- NOTE | 2017-04-26 08:20 | NUR ---
DR CALDWELL HAS BEEN BY TO SEE PATIENT. PLANS TO PULL LINES LATER THIS MORNING. PT TO REMAIN ON DOPAMINE.
--- NOTE | 2017-04-26 09:46 | NUR ---
* Is the patient Alert and Oriented? Yes 0 * How many steps to enter\exit or inside your home? 2 0 * PCP Dr. Rodriguez 0 * Pharmacy [facility] 0 * Preadmission Environment Home with Family 0 * ADLs Independent 0 * List name and contact numbers for known caregivers / representatives who currently or will assist patient after discharge: Daughter - Hayden Fontaine [phone] 0 * Additional services required to return to the preadmission environment? No 0 * Can the patient safely return to the preadmission environment? Yes 0 * Has this patient been hospitalized within the prior 30 days at any hospital? 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 Patient states he lives @ home with his , whom he is primary caregiver for. He reports she has dementia and requires assistance with all ADL's. He reports he does not use any DME at home. He states his daughter, Hayden, from [place] will be staying with them to care for spouse and assist him while he recovers. No needs identified or verbalized at this time. CM will follow. Central Sterile Tech: Keiry Lui
--- NOTE | 2017-04-26 10:29 | NUR ---
DAUGHTER AND CALLED TO CHECK ON PATIENT. UPDATE PROVIDED. BLOOD GLUCOSE CHECKED. INCENTIVE SPIROMETRY PERFORMED. REACHES 750 EASILY. 3 TIMES ALMOST TO THE 1000 LINE.
--- NOTE | 2017-04-26 11:27 | NUR ---
INCENTIVE SPIROMETRY PERFORMED 1000 REACHED X5 750 X5
--- NOTE | 2017-04-26 13:10 | NUR ---
DR CALDWELL HAS BEEN IN TO SEE PATIENT. HE REMOVED CHEST TUBES. ORDERS TO REMOVED A-LINE, SWAN, FAY AND SAL DRAINS. D/C FLUIDS AND CONTINUE WITH DOPAMINE. TO WEAN. WILL CHANGE HAND DRAWER IN HELPER TO PO DOSING.
--- NOTE | 2017-04-26 14:00 | NUR ---
PT UP WITH ASSIST FROM PHYSICAL THERAPIST. CURRENTLY IN CHAIR AT BEDSIDE. LUNCH TRAY IN REACH. VISITOR NOW IN ROOM. PATIENT DENIES ANY OTHER NEEDS AT THIS TIME. URINAL PROVIDED.
--- NOTE | 2017-04-26 14:23 | NUR ---
DAUGHTER AND CALLED TO CHECK ON PATIENT. UPDATE PROVIDED. PATIENT NOW ON PHONE WITH THEM.
--- NOTE | 2017-04-26 16:00 | NUR ---
PT RETURNED TO BED REQUESTED. BREATHING TREATMENT NOW IN PROGRESS. ASKED PT ABOUT WANTING AN ACTUAL DINNER TRAY OR IF HE WANTED TO CONTINUE TO LIQUIDS. SAID HE WAS NOT HUNGRY YET AND WANTED A LIQUID TRAY.
--- NOTE | 2017-04-26 18:10 | NUR ---
PT RESTING QUIETLY IN BED. NO DISTRESS NOTED. HAVE STARTED TO CAUTIOUSLY WEAN DOPAMINE.
--- NOTE | 2017-04-26 19:15 | NUR ---
REPORT RECEIVED AND CARE ASSUMED. INTIAL SHIFT ASSESSMENT COMPLETED SEE FLOWSHEET. PT AWAKE AND ORIENTED X 4. SPEECH CLEAR. BEING MONITORED PER STANDARD CVICU PROTOCOL. ALL ALARMS SET AND VERIFIED. PT IS CURRENTLY ON DOPAMINE @ 4.75 MCG/KG/MIN=17.8ML/HR. PT DOES HAVE TPM. SETTINGS VERIFIED. SENSING ONLY AT THIS TIME. IS CURRENTLY ON 3L N/C O2. ENCOURAGED TO USE IS. PT NOTED TO DO 800-1000ML X 10 WITH GOOD EFFORT. DRESSINGS TO MIDSTERNAL AND SUBSTERNAL CDI. DRESSING TO RIGHT LEG HARVEST SITES ARE INTACT BUT WITH SOME BLOODY DRAINAGE NOTED. ALL IVF AND IV LINES ARE DATED AND LABELED AND ARE CURRENT. CALL LIGHT IN REACH PT ENCOURAGED TO CALL FOR ASSISTANCE. BED IN LOW POSITION FOR SAFETY.
--- NOTE | 2017-04-26 20:49 | NUR ---
ORAL CARE WITH PERIDEX PROVIDED
--- NOTE | 2017-04-26 21:00 | NUR ---
PT VOIDED 100ML OF DARK BLUE URINE. NO C/O DYSURIA.
--- NOTE | 2017-04-26 21:15 | NUR ---
HS MEDS GIVEN AFTER PT TEACHING ON USE AND INDICATIONS. PT VERBALIZED UNDERSTANDING. NO SWALLOWING DIFFICULTY NOTED. HS SNACK OFFERED PT DECLINED. NO VISITORS AT THIS TIME.
--- NOTE | 2017-04-26 23:00 | NUR ---
SHIFT REASSESSMENT COMPLETED SEE FLOWSHEET. PT AGAIN REFUSED BATH AND ORAL CARE. WILL CONTINUE TO OFFER APPROPRIATE
[2017-04-27] VITALS (59 sets, daily range): BP systolic 91–140; BP diastolic 57–84
--- NOTE | 2017-04-27 01:00 | NUR ---
PT SLEEPING WELL TONIGHT
--- NOTE | 2017-04-27 03:00 | NUR ---
SHIFT REASSESSMENT COMPLETED SEE FLOWSHEET. NO SIGNIFICANT CHANGES
--- NOTE | 2017-04-27 03:50 | NUR ---
RADIOLOGY TECHS AT BEDSIDE FOR ORDERED PCXR. PT TOLERATED WELL
--- NOTE | 2017-04-27 05:00 | NUR ---
DRESSINGS TO RIGHT LEG CHANGED PER ORDER. DRESSING TO OLD CT SITES AND INSERTION SITES OF TPM CHANGED PER ORDER. PT GIVEN TOTAL BATH AND ALL LINENS CHANGED
--- NOTE | 2017-04-27 05:30 | NUR ---
GILLES REYNOSO PA HERE TO CHECK ON PT. UPDATE GIVEN
--- NOTE | 2017-04-27 06:15 | NUR ---
LABS DRAWN AND SENT FOR ANALYSIS PER ORDER. NEW PRN ADAPTER APPLIED
--- NOTE | 2017-04-27 06:30 | NUR ---
RT AT BEDSIDE SPO2 96% REDUCED OXYGEN TO 2L N/C
[2017-04-27 06:39] LABS: HEMATOCRIT 26.9 % (42.0-54.0); HEMOGLOBIN 9.2 g/dL (13.5-17.5); MCH 29.1 pg (26.0-34.0); MCHC 34.2 g/dL (31.0-37.0); MCV 85.1 fL (80.0-100.0); MEAN PLATELET VOLUME 11.8 fL (7.4-10.4); RBC 3.16 10x6/uL (4.20-6.10); RDW 14.3 % (11.5-14.5); WBC 12.2 10x3/uL (4.8-10.8)
[2017-04-27 06:53] LABS: ALBUMIN 3.2 g/dL (3.4-5.0); ALKALINE PHOSPHATASE 54 U/L (46-116); ALT (SGPT) 37 U/L (10-68); BILIRUBIN - TOTAL 1.48 mg/dL (0.2-1.3); CALCIUM 8.2 mg/dL (8.5-10.1); CARBON DIOXIDE 30.2 mmol/L (21.0-32.0); CHLORIDE - SERUM 96 mmol/L (98-107); CREATININE - SERUM 0.8 mg/dL (0.6-1.3); GLUCOSE 146 mg/dL (74-106); PROTEIN - SERUM 5.5 g/dL (6.4-8.2); SODIUM 131 mmol/L (136-145); eGFR NON AFRICAN AMERICAN > 90 mL/min (90-120)
[2017-04-27 06:56] LABS: CALC OSMOLALITY 268 mosm/kg (275-300); UREA NITROGEN 22 mg/dL (7-18)
--- NOTE | 2017-04-27 07:00 | NUR ---
ORAL CARE DONE WITH PERIDEX
--- NOTE | 2017-04-27 07:15 | NUR ---
REPORT RECIEVED FROM OFFICE COORDINATOR NURSE. PT RESTING IN BED QUIETLY. ASSESSMENT COMPLETE PER FLOWSHEET. REFER FOR DETAILS. CALL LIGHT IN REACH. BED IN LOW POSITION. VSS. WILL MONITOR FOR CHANGES.
--- NOTE | 2017-04-27 09:30 | NUR ---
ASSISTED TO BATHROOM. PT HAS LARGE BM. ATTACHED BACK TO ICU MONITORS AND IS SITTING IN RECLINER.
--- NOTE | 2017-04-27 10:15 | NUR ---
MORNING MEDICATIONS ADMINISTERED PER ORDERS. FRESH ICE WATER TAKEN. CALL LIGHT IN REACH. WILL CONT TO ASSESS.
--- NOTE | 2017-04-27 11:00 | NUR ---
REASSESSMENT COMPLETE PER FLOWSHEET. NO CHANGES NOTED AT THIS TIME.
--- NOTE | 2017-04-27 12:30 | NUR ---
IN RECLINER EATING LUNCH. VSS. DENIES FURTHER NEEDS.
--- NOTE | 2017-04-27 12:31 | NUR ---
Nutrition Follow Up: Pt was asleep at the time of RD visit. Interview deferred. Spoke with nursing who reported that pt continues to request clear liquid diet. She said that pt does not have his dentures and does not want to try solid food. Nursing has encouraged pt to at least try full liquid diet. Wt gain noted. Labs reviewed. Meds noted including Reglan. Rec advancing SHRAVAN when pt agrees. RD following.
--- NOTE | 2017-04-27 15:00 | NUR ---
REASSESSMENT COMPLETE. NO CHANGES NOTED A THIS TIME. WILL CONT TO ASSESS.
--- NOTE | 2017-04-27 17:15 | NUR ---
ASSISTED BACK TO BED. STATED HE WAS TIRED AND WANTED TO TAKE A NAP. BEDSIDE TABLE IN REACH WITH PERSONAL BELONGINGS. CALL LIGHT IN REACH. WILL CONT TO ASSESS.
--- NOTE | 2017-04-27 18:00 | NUR ---
DRESSING'S CHANGED PER ORDERS. VSS. WILL CONT TO ASSESS.
--- NOTE | 2017-04-27 19:15 | NUR ---
REPORT RECEIVED, SHIFT ASSESSMENT COMPLETE. PATIENT A&O X4, COMPLAINING OF STOMACH DISCOMFORT. STATES "FEELS LIKE A BURNING SENSATION AND I BURP A LOT OF GAS" ZOFRAN GIVEN PRIOR TO SHIFT, REGLAN GIVEN NOW. ABDOMEN IS DISTENDED AND TIGHT. BOWEL SOUNDS PRESENT X4 QUADRANTS. S1S2, NSR ON MONITOR. TPM VVI 60, SENSING. ASHLEY SOUNDS CLEAR. 2L VIA NC. PERIPHERAL PULSES +2. LEFT DL SUBCLAVIAN SL, SWAB CAPS IN USE, DRESSING C/D/I. TEDS AND SCD'S ON. MIDSTERNAL AND SUBSTERNAL DRESSINGS C/D/I. RIGHT LEG HARVEST SITES INTACT, OOZING NOTED. VSS, NANCY GARNERIOR.
--- NOTE | 2017-04-27 20:20 | NUR ---
NIGHT MEDS GIVEN. PRN PAIN MEDICINE GIVEN PER REQUESTS OF ABDOMINAL DISCOMFORT. PATIENT REQUESTS TO SIT UP IN CHAIR. AMBULATED 50 FEET BEFORE SITTING, BURPING GAS AT THIS TIME. UP IN CHAIR, CL AND BELONGINGS IN REACH.
--- NOTE | 2017-04-27 20:30 | NUR ---
PATIENT STATES HE IS NOT NAUSEATED HE WAS BEFORE REGLAN WAS GIVEN. WILL MONITOR.
--- NOTE | 2017-04-27 21:30 | NUR ---
PERI MCFARLAND CALLED FOR UPDATE AND PROVIDED PASSWORD. UPDATE GIVEN.
--- NOTE | 2017-04-27 23:10 | NUR ---
REASSESSMENT COMPLETE, SEE FLOWSHEET. NO ACUTE CHANGES. PATIENT RESTING WELL. DENIES NAUSEA AT THIS TIME. NSR ON MONITOR. VSS.
[2017-04-28] VITALS (25 sets, daily range): BP systolic 90–135; BP diastolic 45–81
--- NOTE | 2017-04-28 01:10 | NUR ---
RESTING WITH EYES CLOSED. RR EVEN AND NONLABORED. VSS.
--- NOTE | 2017-04-28 03:15 | NUR ---
PATIENT VOMITED 500CC OF DARK COLORED BILE, ZOFRAN GIVEN. PATIENT REPORTS FEELING BETTER AFTERWARDS AND WITHOUT NAUSEA.
--- NOTE | 2017-04-28 03:26 | NUR ---
LEG DRESSINGS AND TPM DRESSING CHANGED. ALL INCISIONS HEALING WELL. LORI INTACT. HARVEST SITE DRESSINGS WERE SATURATED. OOZING SEEN AT OLD SAL DRAIN SITES.
--- NOTE | 2017-04-28 04:45 | NUR ---
PATIENT TO XRAY-TOLERATED WELL.
--- NOTE | 2017-04-28 06:10 | NUR ---
PATIENT HAD ABOUT 100MLS OF BROWN EMISIS, DENIES NAUSEA AFTER. ORAL CARE SUPPLIES PROVIDIED.
[2017-04-28 06:41] LABS: HEMATOCRIT 30.5 % (42.0-54.0); HEMOGLOBIN 10.5 g/dL (13.5-17.5); MCH 28.8 pg (26.0-34.0); MCHC 34.4 g/dL (31.0-37.0); MCV 83.8 fL (80.0-100.0); MEAN PLATELET VOLUME 11.8 fL (7.4-10.4); RBC 3.64 10x6/uL (4.20-6.10); RDW 14.3 % (11.5-14.5); WBC 11.5 10x3/uL (4.8-10.8)
[2017-04-28 06:50] LABS: ALBUMIN 3.1 g/dL (3.4-5.0); ALKALINE PHOSPHATASE 67 U/L (46-116); ALT (SGPT) 46 U/L (10-68); BILIRUBIN - TOTAL 1.58 mg/dL (0.2-1.3); CALC OSMOLALITY 266 mosm/kg (275-300); CARBON DIOXIDE 27.8 mmol/L (21.0-32.0); CHLORIDE - SERUM 93 mmol/L (98-107); CREATININE - SERUM 0.9 mg/dL (0.6-1.3); GLUCOSE 127 mg/dL (74-106); PROTEIN - SERUM 5.8 g/dL (6.4-8.2); SODIUM 129 mmol/L (136-145); eGFR NON AFRICAN AMERICAN 89 mL/min (90-120)
[2017-04-28 06:53] LABS: UREA NITROGEN 30 mg/dL (7-18)
--- NOTE | 2017-04-28 07:15 | NUR ---
REPORT RECEIVED FROM ADMINISTRATION DEAN NURSE. PT RESTING IN RECLINER QUIETLY. VSS, SHIFT ASSESSMENT COMPLETE PER FLOWSHEET. REFER FOR DETAILS. PATIENT A&O X 4. ABD TIGHT,BOWEL SOUNDS PRESENT X4 QUADRANTS. S1S2, NSR ON MONITOR. TPM VVI 60, V-SENSING. ASHLEY SOUNDS CLEAR. 2L VIA NC. PERIPHERAL PULSES +2. LEFT DL SUBCLAVIAN SL, SWAB CAPS IN USE, DRESSING C/D/I. TEDS AND SCD'S ON. MIDSTERNAL AND SUBSTERNAL DRESSINGS C/D/I. RIGHT LEG HARVEST SITES INTACT VSS. CALL LIGHT IN REACH. WILL CONT PLAN OF CARE.
--- NOTE | 2017-04-28 09:00 | NUR ---
DR. CALDWELL AT BEDSIDE. UPDATE PROVIDED REGARDING HIS N/V FROM LAST NIGHT. WILL KEEP HIM NPO AND OBTAIN KUB.
--- NOTE | 2017-04-28 11:00 | NUR ---
REASSESSMENT COMPLETE PER FLOWSHEET. NO CHANGES NOTED AT THIS TIME. WILL CONT TO ASSESS.
--- NOTE | 2017-04-28 13:00 | NUR ---
ASSISTED TO BATHROOM. BM NOTED. MODERATE AMOUNT OF FORMED STOOL. VOIDED 350CC OF BLUE URINE. PASSED GAS.
--- NOTE | 2017-04-28 14:00 | NUR ---
DRESSING'S CHANGED PER ORDERS. ASSISTED BACK TO RECLINER. CALL LIGHT IN REACH. WILL CONT TO MONITOR.
--- NOTE | 2017-04-28 15:00 | NUR ---
NO CHANGES NOTED AT THIS TIME. WILL CONT TO ASSESS.
--- NOTE | 2017-04-28 16:03 | OP ---
PATIENT NAME: JOSÉ MIGUEL SANDERS MEDICAL RECORD: [id number] LOCATION:[facility] D.CV07 ADMISSION DATE:04/24/17 SURGEON: JEREL CALDWELL MD DATE OF OPERATION: 04/24/2017 SURGEON: Jerel Caldwell MD ANESTHESIA: General endotracheal, Dr. Corbett. OPERATION PERFORMED: Coronary artery bypass utilizing left internal thoracic, left anterior descending, reverse saphenous vein segment to the ramus coronary artery, reverse saphenous vein graft to the distal right coronary artery, and reverse saphenous vein graft to the posterior descending coronary artery. 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 INDICATION FOR OPERATION: Angina pectoris. FINDINGS OF THE OPERATION: The left internal thoracic was an excellent conduit as was the saphenous vein. The vessels were severely and diffusely diseased and smallish in size. The left anterior descending was grafted past its most diseased portion in the left anterior descending. The ramus was grafted in its intramyocardial portion. The posterior descending was distally grafted past its most diffuse disease and this was a severely and diffusely diseased as was the right coronary artery but it was of good caliber. ESTIMATED BLOOD LOSS: Cell Saver was used. DESCRIPTION OF PROCEDURE: After informed consent, adequate preoperative medication and evaluation, the patient was brought to the operating room, placed on the table in the supine position. After induction of general endotracheal anesthesia and application of appropriate monitoring devices, the patient was prepped and draped in a sterile field, utilizing Betadine scrub, alcohol, and Betadine solution. A Betadine-impregnated drape was also used. Saphenous vein was harvested from the right side and prepared for reverse saphenous vein graft. The leg was closed over drains utilizing 3-0 Vicryl and skin shantel. A median sternotomy incision was used and dissection carried down the fascia. Hemostasis maintained with electrocautery. Sternum was divided. Innominate vein was identified and protected. Left internal thoracic was taken down and prepared for grafting. The patient was given a calculated dose of heparin, cannulated in standard fashion utilizing 1 aortic, one two-stage cannula in the atrium and inferior vena cava. The patient was placed on cardiopulmonary bypass, cooled to 32 degrees centigrade. A cross clamp was placed just proximal to the aortic cannula and the patient was given cardioplegic solution through the aortic root. The patient was given a warm induction and cold maintenance. The patient was given cold intermittent cardioplegic solution throughout the procedure, either through the grafts, the root or a combination of both. OPERATIVE REPORT [id number] MELODYSTIVENJOSÉ MIGUELBRANDIE SANTOS The first vessel to be grafted was the ramus coronary artery was grafted end-to-side utilizing a running 7-0 Prolene suture. This was measured back to the aorta and a proximal anastomosis fashioned utilizing running 6-0 Prolene suture. Next, the distal right was grafted end-to-side utilizing a running 7-0 Prolene suture. Grafts were measured back to the aorta and the proximal anastomosis fashioned utilizing running 6-0 Prolene suture. Next, the posterior descending was grafted end-to-side utilizing a running 7-0 Prolene suture. Grafts were measured back to the aorta and a proximal anastomosis fashioned utilizing running 6-0 Prolene suture. Next, left internal thoracic was brought through the hole in pericardium, sutured left anterior descending end-to-side utilizing a running 8-0 Prolene suture. Pedicle was attached to the epicardium with 6-0 Prolene suture. The patient was given warm cardioplegic reperfusion and controlled reperfusion. The patient rewarmed to 37 degrees centigrade. Two atrial and 2 ventricular pacing wires were placed on the heart and brought out through the epigastric area. The patient was weaned from cardiopulmonary bypass. After being stable off bypass, given calculated dose of protamine to reverse the heparin. Hemostasis was achieved. A #40 right angle and #36 chest tubes were brought in through the epigastric area and placed in the mediastinum. The chest was again irrigated. Instrument count and sponge count were correct times 2. Chest was closed in layers utilizing #7 wire on the sternum, #2 Vicryl in linea alba and pectoralis fascia. Subcutaneous tissue was approximated with 3-0 Vicryl and skin approximated with 3-0 subcuticular Vicryl. Sterile dressings were applied. The patient tolerated the procedure and was transferred to cardiovascular recovery in critical but stable condition. TRANSINT:[id number] Voice Confirmation ID: [id number] DOCUMENT ID: [id number] JEREL CALDWELL MD at 1603 CC: [id number] DICTATION DATE: 04/24/17 1713 FLOATLIGHT POWDER MIXER: 04/24/17 [id number] ADM IN [facility] [address] [id number]
--- NOTE | 2017-04-28 19:09 | NUR ---
ORAL CARE PERFORMED WITH PERIDEX ORDERED
--- NOTE | 2017-04-28 19:15 | NUR ---
REPORT RECVD. CARE ASSUMED. INITIAL ASSMNT COMPLETED. SEE FLOWSHEET FOR ALL FINDINGS. SEDATED ON MECH VENT. LUNG SOUNDS COARSE THRU OUT. SPO2 97% SR-ST ON THE MONITOR. PULSES FAINT. 3+ PITTING EDEMA TO ALL EXTREMITIES. AFEBRILE. ABD SOFT, BS HYPO X4. F/C PATENT WITH DARK CONCENTRATED UOP. TURNED AND REPOSITIONED.. ORAL CARE PER VAP. RESTRAINTS PER PROTOCOL. HOB UP. CONT CURRENT POC.
--- NOTE | 2017-04-28 19:15 | NUR ---
REPORT RECVD. CARE ASSUMED. INITIAL ASSMNT COMPLETED. SEE FLOWSHEET FOR ALL FINDINGS. AWAKE AND AOX4, UP IN CHAIR AT BEDSIDE. VSS. RESP UNLABORED ON RA. SR ON THE MONITOR. TEMP PM INTACT AT VVI 60. SENSING ONLY,. AFEBRILE. PULSES PALP. DENIES DISCOMFORT. ABD DISTENDED. BS HYPO X4. PASSING FLATUS. STRICT NPO IN PLACE. C/L IN REACH. CONT CURRENT POC.
--- NOTE | 2017-04-28 21:15 | NUR ---
TURNED AND REPOSITIONED. ORAL CARE PER VAP. PRBC INFUSING NO DIFF. VSS. PRESSORS IN USE. HOB UP. CONT CURRENT POC.
--- NOTE | 2017-04-28 21:30 | NUR ---
ASSISTED TO BED. POSITIONED SELF FOR COMFORT. VOIDING TO URINAL DARK BLUE UOP. HOB UP. DENIES NEEDS. C/L IN REACH. CONT CURRENT POC.
--- NOTE | 2017-04-28 23:15 | NUR ---
REASSESSMENT COMPLETED. SEE FLOWSHEET FOR ALL FINDINGS. RESTING IN BED. EYES CLOSED. VSS. RESP UNLABORED ON RA. SR ON THE MONITOR. TEMP PM INTACT AT VVI 60. SENSING ONLY,. AFEBRILE. PULSES PALP. DENIES DISCOMFORT. ABD DISTENDED. BS HYPO X4. PASSING FLATUS. STRICT NPO IN PLACE. C/L IN REACH. CONT CURRENT POC.
--- NOTE | 2017-04-28 23:15 | NUR ---
REASSESSMENT COMPLETED. SEE FLOWSHEET FOR ALL FINDINGS. SEDATED ON MECH VENT. LUNG SOUNDS COARSE THRU OUT. SPO2 97% SR-ST ON THE MONITOR. PULSES FAINT. 3+ PITTING EDEMA TO ALL EXTREMITIES. AFEBRILE. ABD SOFT, BS HYPO X4. F/C PATENT WITH DARK CONCENTRATED UOP. TURNED AND REPOSITIONED.. ORAL CARE PER VAP. RESTRAINTS PER PROTOCOL. HOB UP. CONT CURRENT POC.
[2017-04-29] VITALS (23 sets, daily range): BP systolic 89–115; BP diastolic 47–69
--- NOTE | 2017-04-29 01:11 | NUR ---
TURNED AND REPOSITIONED. ORAL CARE PER VAP. REMAINS ON PRESSURE SUPPORT. SR-ST ON THE MONITOR. SEDATED ON MECH VENT. HOB UP. RESTRAINTS PER PROTOCOL. CONT CURRENT POC.
--- NOTE | 2017-04-29 01:20 | NUR ---
RESTING WITH EYES CLOSED IN BED. VSS. NO NEEDS VOICED. C/L IN REACH. CONT CURRENT POC.
--- NOTE | 2017-04-29 03:20 | NUR ---
REASSESSMENT COMPLETED. SEE FLOWSHEET FOR ALL FINDINGS. SEDATED ON MECH VENT. LUNG SOUNDS COARSE THRU OUT. SPO2 97% SR-ST ON THE MONITOR. PULSES FAINT. 3+ PITTING EDEMA TO ALL EXTREMITIES. AFEBRILE. ABD SOFT, BS HYPO X4. F/C PATENT WITH DARK CONCENTRATED UOP. TURNE AND REPOSITIONED.. ORAL CARE PER VAP. RESTRAINTS PER PROTOCOL. HOB UP. CONT CURRENT POC.
--- NOTE | 2017-04-29 05:14 | NUR ---
UP IN CHAIR AT BEDSIDE WITH NO DISTRESS. VSS. SR ON THE MONITOR. TEMP PM INTACT. NPO. SPO2 94% ON RA. C/L IN REACH. CONT CURRENT POC.
[2017-04-29 06:31] LABS: HEMATOCRIT 27.4 % (42.0-54.0); HEMOGLOBIN 9.3 g/dL (13.5-17.5); MCH 29.1 pg (26.0-34.0); MCHC 33.9 g/dL (31.0-37.0); MCV 85.6 fL (80.0-100.0); MEAN PLATELET VOLUME 12.2 fL (7.4-10.4); RBC 3.2 10x6/uL (4.20-6.10); RDW 14.2 % (11.5-14.5); WBC 9.6 10x3/uL (4.8-10.8)
[2017-04-29 06:46] LABS: ALBUMIN 2.5 g/dL (3.4-5.0); ANION GAP 11.6 mmol/L (8-16); CALCIUM 7.6 mg/dL (8.5-10.1); POTASSIUM - SERUM 4.6 mmol/L (3.5-5.1); PROTEIN - SERUM 5.1 g/dL (6.4-8.2)
[2017-04-29 06:47] LABS: CREATININE - SERUM 1.3 mg/dL (0.6-1.3)
--- NOTE | 2017-04-29 08:30 | NUR ---
ASSESSMENT COMPLETE. R LEG DRESSING SATURATED WITH SEROSANGUINEOUS DRAINAGE AND STOOL AFTER LARGE LIQUID BM. REDRESSED WITH BETADINE OINTMENT AND 4X4S.
--- NOTE | 2017-04-29 12:30 | NUR ---
INCONTINENT LARGE AMT LIQUID BROWN STOOL. INCONTINENCE BRIEF APPLIED. R LEG DRESSING CHANGED DUE TO STOOL. REDRESSED WITH 4X4S AND MEDIPORE TAPE.
--- NOTE | 2017-04-29 18:23 | NUR ---
ORAL CARE PERFORMED WITH PERIDEX ORDERED
--- NOTE | 2017-04-29 19:15 | NUR ---
REPORT RECVD. CARE ASSUMED. INITIAL ASSMNT COMPLETED. SEE FLOWSHEET FOR ALL FINDINGS. AWAKE AND AOX4, UP IN CHAIR AT BEDSIDE. VSS. RESP UNLABORED ON RA. SR ON THE MONITOR. TEMP PM INTACT AT VVI 60. SENSING ONLY,. AFEBRILE. PULSES PALP. DENIES DISCOMFORT. ABD DISTENDED. BS HYPO X4. PASSING FLATUS. VOIDING BLUE UOP TO URINAL. TAKING PO FLUIDS NO DIFF. C/L IN REACH. CONT CURRENT POC.
--- NOTE | 2017-04-29 21:20 | NUR ---
MINIMAL ASSIST TO BR TO VOID AND HAVE BM. MOD ASSIST WITH DONELL CARE. POSITIONED SELF FOR COMFORT IN BED. VSS. DENIES DISCOMFORT. HOB UP. C/L IN REACH. CONT CURRENT POC.
--- NOTE | 2017-04-29 23:15 | NUR ---
REASSESSMENT COMPLETED. SEE FLOWSHEET FOR ALL FINDINGS. RESTING IN BED WITH NO DISTRESS. VSS. RESP UNLABORED ON RA. SR ON THE MONITOR. TEMP PM INTACT AT VVI 60. SENSING ONLY,. AFEBRILE. PULSES PALP. DENIES DISCOMFORT. ABD DISTENDED. BS HYPO X4. PASSING FLATUS. VOIDING BLUE UOP TO URINAL. TAKING PO FLUIDS NO DIFF. C/L IN REACH. CONT CURRENT POC.
[2017-04-30] VITALS (22 sets, daily range): BP systolic 89–141; BP diastolic 48–79
--- NOTE | 2017-04-30 01:10 | NUR ---
RESTING WITH NO DISTRESS. VSS. CONT POC.
--- NOTE | 2017-04-30 03:10 | NUR ---
REASSESSMENT COMPLETED. UCAFIB SEEN ON THE MONITOR. SEE FLOWSHEET FOR ALL FINDINGS.
--- NOTE | 2017-04-30 03:35 | NUR ---
SUSTAINED AFIB WITH RVR ON THE MONITOR. CONFIRMED WITH 12 LEAD. ABGS DRAWN AND RESULTED. CA+ TO BE TREATED. REPORTED TO DR CALDWELL. ORDERS RECVD FOR AMIODARONE LOADING AND GTT PROTOCOL. ORDERS INITIATED. PORTABLE CHEST XRAY DONE AT THIS TIME. PT ON BEDREST FOR THE MOMENT.
--- NOTE | 2017-04-30 04:10 | NUR ---
AFTER AMIODARONE BOLUS COMPLETED, PT IS IN SR WITH PACS SEEN.
--- NOTE | 2017-04-30 05:30 | NUR ---
RIGHT LEG DRESSINGS CHANGED. BATH GIVEN. LINENS CHANGED. SR WITH FREQ PACS SEEN ON THE MONITOR.
[2017-04-30 06:21] LABS: HEMATOCRIT 27.5 % (42.0-54.0); MCH 28.5 pg (26.0-34.0); MCHC 32.7 g/dL (31.0-37.0); MEAN PLATELET VOLUME 11.1 fL (7.4-10.4); RBC 3.16 10x6/uL (4.20-6.10); RDW 14.8 % (11.5-14.5); WBC 11.7 10x3/uL (4.8-10.8)
[2017-04-30 06:35] LABS: ALBUMIN 2.2 g/dL (3.4-5.0); ALKALINE PHOSPHATASE 84 U/L (46-116); ALT (SGPT) 60 U/L (10-68); CALCIUM 8.3 mg/dL (8.5-10.1); CARBON DIOXIDE 26.5 mmol/L (21.0-32.0); CHLORIDE - SERUM 99 mmol/L (98-107); GLUCOSE 96 mg/dL (74-106); POTASSIUM - SERUM 4.4 mmol/L (3.5-5.1); SODIUM 133 mmol/L (136-145)
[2017-04-30 06:37] LABS: CALC OSMOLALITY 272 mosm/kg (275-300); CREATININE - SERUM 0.8 mg/dL (0.6-1.3); UREA NITROGEN 33 mg/dL (7-18); eGFR NON AFRICAN AMERICAN > 90 mL/min (90-120)
--- NOTE | 2017-04-30 08:00 | NUR ---
ASSESSMENT COMPLETE. NO DISTRESS NOTED
--- NOTE | 2017-04-30 10:00 | NUR ---
DR. CALDWELL HERE. NO NEW ORDERS.
--- NOTE | 2017-04-30 13:45 | NUR ---
VOMITED 700CC FOUL SMELLING BROWN LIQUID. APPEARS TO BE FECES. DR. CALDWELL NOTIFIED. NEW ORDERS REC'D.
--- NOTE | 2017-04-30 14:10 | NUR ---
NGT PLACED VIA R NARE WITH IMMEDIATE RETURN 1000CC+ BROWN FOUL SMELLING LIQUID. NOTIFIED OF CONSULT
--- NOTE | 2017-04-30 15:00 | NUR ---
TOTAL 2200CC EVACUATED VIA NGT. PO CONTRAST FOR CT GIVEN VIA NGT
--- NOTE | 2017-04-30 16:10 | NUR ---
DR. CASTAÑEDA HERE. PATIENT CONDITION UPDATE GIVEN. NO NEW ORDERS AT THIS TIME.
--- NOTE | 2017-04-30 16:20 | NUR ---
TO CT VIA WC
--- NOTE | 2017-04-30 16:40 | NUR ---
RETURNED FROM CT VIA WC. NGT PLACED BACK TO INT SUCTION.
--- NOTE | 2017-04-30 18:46 | NUR ---
ORAL CARE PERFORMED WITH PERIDEX ORDERED
--- NOTE | 2017-04-30 19:30 | NUR ---
REPORT RECIEVED. PT IN CHAIR AT BED SIDE. REQUESTED TO GET IN BED ASSISTED HIMM BACK TO BED AND POSITIONED FOR COMFORT. ASSESSMENT COMPLETED. SEE FLOW SHEET FOR FURTHER DETAILS. WILL CONTINUE TO MONITOR PT.
--- NOTE | 2017-04-30 20:57 | NUR ---
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 CASTAÑEDA NOTE REVIEWED CONSULTED WITH CHARGE NURSE AND COME TO CONCLUSION THAT IS ALREADY AWARE OF THIS. WILL CONTINUE TO MONITOR PT.
--- NOTE | 2017-04-30 21:00 | NUR ---
PT RESTING WITH NO SIGNS OF DISTRESS. WILL CONTINUE TO MONITOR PT.
--- NOTE | 2017-04-30 23:00 | NUR ---
REASSESSMENT COMPLETED. NO ACUTE CHNAGES AT THIS TIME. SEE FLOW SHEET FOR FURTHER DETAILS. PT POSITIONED FOR COMFORT. WILL CONTINUE TO MONITOR.
[2017-05-01] VITALS (23 sets, daily range): BP systolic 102–138; BP diastolic 55–79
--- NOTE | 2017-05-01 01:00 | NUR ---
PT RESTING WITH NO SIGNS OF DISTRESS. CALL LIGHT IN REACH. WILL CONTINUE TO MONITOR PT.
--- NOTE | 2017-05-01 03:00 | NUR ---
REASSESSMENT COMPLETED. SEE FLOW SHEET FOR FURTER DETAILS. NO ACUTE CHNAGES AT THIS TIME. PT POSITIONED FOR COMFORT WILL CONTINUE TO MONITOR.
--- NOTE | 2017-05-01 05:00 | NUR ---
PT BACK FROM X-RAY. PT GIVEN BATH AND DRESSING CHNAGED PER ORDER. PT PLACED UN THE CHAIR AND HOOKED TO MONITORS. WILL CONTINUE TO MONITOR .
[2017-05-01 06:12] LABS: HEMATOCRIT 29.1 % (42.0-54.0); HEMOGLOBIN 9.7 g/dL (13.5-17.5); MCH 28.9 pg (26.0-34.0); MCHC 33.3 g/dL (31.0-37.0); MCV 86.6 fL (80.0-100.0); MEAN PLATELET VOLUME 10.4 fL (7.4-10.4); RBC 3.36 10x6/uL (4.20-6.10); RDW 14.6 % (11.5-14.5)
[2017-05-01 06:19] LABS: WBC 16.7 10x3/uL (4.8-10.8)
[2017-05-01 06:31] LABS: ALBUMIN 2.2 g/dL (3.4-5.0); ALKALINE PHOSPHATASE 81 U/L (46-116); ALT (SGPT) 50 U/L (10-68); BILIRUBIN - TOTAL 1.72 mg/dL (0.2-1.3); CALC OSMOLALITY 271 mosm/kg (275-300); CALCIUM 7.7 mg/dL (8.5-10.1); CARBON DIOXIDE 26.8 mmol/L (21.0-32.0); CHLORIDE - SERUM 99 mmol/L (98-107); CREATININE - SERUM 0.9 mg/dL (0.6-1.3); GLUCOSE 103 mg/dL (74-106); POTASSIUM - SERUM 4.5 mmol/L (3.5-5.1); PROTEIN - SERUM 5.3 g/dL (6.4-8.2); SODIUM 133 mmol/L (136-145); UREA NITROGEN 28 mg/dL (7-18); eGFR NON AFRICAN AMERICAN 89 mL/min (90-120)
--- NOTE | 2017-05-01 09:15 | NUR ---
PT UP TO WALK WITH PHYSICAL THERAPY
--- NOTE | 2017-05-01 09:30 | NUR ---
IMAGING AT BEDSIDE TO EVALUATE BEING ABLE TO PERFORM STUDY
--- NOTE | 2017-05-01 09:52 | NUR ---
IMAGING AGAIN AT BEDSIDE FOR STUDY
--- NOTE | 2017-05-01 10:06 | NUR ---
Patient Name: JOSÉ MIGUEL SANDERS Encounter No: [id number] : 1945 Primary Insurance: MEDICARE A & B Anticipated DC Date: 05-01-2017 DCP follow-up note: Patient and family in agreement with discharge plan. No changes to plan. Case management will follow and assist as needed. Keiry Lui
--- NOTE | 2017-05-01 10:11 | NUR ---
NUTRITION F/U CHART REVIEWED. NURSING REPORTS PT CURRENTLY NPO. WILL PROVIDE DIET WHEN RESUMED. MONITOR PO INTAKE. RD FOLLOWING
--- NOTE | 2017-05-01 11:34 | NUR ---
DAUGHTER CALLED. UPDATE PROVIDED.
--- NOTE | 2017-05-01 11:36 | NUR ---
IMAGING AT BEDSIDE.
--- NOTE | 2017-05-01 12:09 | NUR ---
CHANGED CORDARONE DRIP TO 2.5ML/HR REQUESTED BY DR CALDWELL
--- NOTE | 2017-05-01 14:06 | NUR ---
CONTACTED VASCULAR ACCESS NURSE TO NOTIFY OF ORDER. WILL BE UP TODAY TO PLACE LINE
--- NOTE | 2017-05-01 14:23 | NUR ---
VASCULAR ACCESS NURSE ON UNIT TO PLACE LINE
--- NOTE | 2017-05-01 14:39 | NUR ---
PT ASSISTED FROM CHAIR TO BED TO HAVE MIDLINE PLACED.
--- NOTE | 2017-05-01 16:30 | NUR ---
DRESSINGS CHANGED TO UPPER ABDOMEN AND RIGHT LEG. RIGHT LEG DRESSINGS SATURATED AND SEEPING. PT SKIN IRRITATED IN PLACES BY TAPE ADHESIVE. USED LESS TAPE TO HOLD GAUZE AND ALSO USED SPANDAGE TO HELP HOLD DRESSINGS.
--- NOTE | 2017-05-01 17:00 | NUR ---
PT HAD LIQUID STOOL, THOUGHT IT WAS GAS. PT CLEANED UP AND FULL BEDDING CHANGED.
--- NOTE | 2017-05-01 17:20 | NUR ---
PT HAD ANOTHER LARGE LIQUID STOOL. ASSISTED UP TO TOILET. MORE LIQUID BOWEL MOVEMENT AND SEVERAL SOFT FORMED PIECES.
--- NOTE | 2017-05-01 18:01 | NUR ---
PT ASSISTED UP TO TOILET. FEELS MORE BOWEL MOVEMENT COMING. IMAGING COMPLETE WITH THEIR STUDY. PT HAS BEEN BACK ON SUCTION. 750 RETURN OF BROWN PUTRID SMELLING OUTPUT.
--- NOTE | 2017-05-01 18:11 | NUR ---
PT HAD ANOTHER LOOSE STOOL WITH SMALL FORMED PIECES.
--- NOTE | 2017-05-01 18:23 | NUR ---
PT WENT INTO AFIB WHILE UP TO TOILET. CALLED DR CALDWELL WANTS PATIENT GIVEN BOLUS OF AMIODARONE AND THEN 1MG/HR FOR 6HR AND 0.5 MG AFTER THAT. LET HIM KNOW OF PATIENT NGT OUTPUT AND WE REVIEWED SMALL BOWEL STUDY FINDINGS.
--- NOTE | 2017-05-01 18:50 | NUR ---
PT CLEANED UP FROM ANOTHER LOOSE BOWEL MOVEMENT. WAS UNABLE TO GET UP TO TOILET IN TIME.
--- NOTE | 2017-05-01 18:51 | NUR ---
ORAL CARE PERFORMED WITH PERIDEX PRDERED
--- NOTE | 2017-05-01 18:55 | NUR ---
AMIODARONE 1MG/HR STARTED IN MIDLINE AT LEFT ARM. NS REMAINS RUNNING TO LEFT SUBCLAVIAN DUE TO BEING OVER RESIDENTIAL FULL. WILL ASK NIGHT NURSE TO PULL NEW FLUID AND HANG LINE WHEN CLOSE TO REPLACE AND DISCONTINUE CENTRAL LINE.
--- NOTE | 2017-05-01 19:30 | NUR ---
REPORT RECIEVED. ASSESSMENT COMPLETED. SEE FLOW SHEET FOR FURTHER DETAILS. PT IS IN THE BED POSITIONED FOR COMFORT WILL CONTINUE TO MONITOR PT.
--- NOTE | 2017-05-01 21:00 | NUR ---
PT REQUESTED TO USE THE RESTROOM. ASSISTED TO A SUCCESSFUL LIQUID BM. CLEANED AND HELPED BACK IN BED. WILL CONTINUE TO MONITOR PT.
--- NOTE | 2017-05-01 22:12 | NUR ---
DR. CASTAÑEDA AT BED SIDE TO ASSESS PT. WILL CONTINUE TO MONITOR PT.
[2017-05-01 22:25] LABS: ALBUMIN 2.2 g/dL (3.4-5.0); ALKALINE PHOSPHATASE 82 U/L (46-116); ALT (SGPT) 48 U/L (10-68); BILIRUBIN - TOTAL 1.65 mg/dL (0.2-1.3); CALC OSMOLALITY 284 mosm/kg (275-300); CALCIUM 7.8 mg/dL (8.5-10.1); CARBON DIOXIDE 25.2 mmol/L (21.0-32.0); CHLORIDE - SERUM 104 mmol/L (98-107); CREATININE - SERUM 0.9 mg/dL (0.6-1.3); GLUCOSE 103 mg/dL (74-106); PROTEIN - SERUM 5.3 g/dL (6.4-8.2); SODIUM 140 mmol/L (136-145); UREA NITROGEN 28 mg/dL (7-18); eGFR NON AFRICAN AMERICAN 89 mL/min (90-120)
[2017-05-01 22:26] LABS: POTASSIUM - SERUM 3.8 mmol/L (3.5-5.1)
--- NOTE | 2017-05-01 23:01 | NUR ---
REASSESSMENT COMPLETED. NO ACUTE CHNAGES AT THIS TIME. SEE FLOW SHEET FOR FURTHER DETAILS. PT POSITIONED FOR COMFORT WILL CONTINUE TO MONITOR PT AT THIS TIME.
[2017-05-02] VITALS (24 sets, daily range): BP systolic 92–153; BP diastolic 51–89
--- NOTE | 2017-05-02 01:00 | NUR ---
PT RESTING WITH NO SIGNS OF DISTRESS. CALL LIGHT IN REACH WILL CONTINUE TO MONITOR PT.
--- NOTE | 2017-05-02 03:04 | NUR ---
REASSESSMENT COMPLETED. NO CHANGES SEE FLOW SHEET FOR DETAILS. PT POSITIONED FOR COMFORT WILL CONTINUE TO MONITOR.
--- NOTE | 2017-05-02 05:08 | NUR ---
PT BACK FROM X-RAY IN THE CHAIR RT LEG DRESSINGS CHNAGED PER ORDER. PT EATING SOME ICE. CALL LIGHT IN REACH WILL CONTINUE TO MONITOR PT.
[2017-05-02 06:04] LABS: HEMOGLOBIN 9.3 g/dL (13.5-17.5); MCH 28.2 pg (26.0-34.0); MCHC 32.1 g/dL (31.0-37.0); MCV 87.9 fL (80.0-100.0); MEAN PLATELET VOLUME 10.9 fL (7.4-10.4); RBC 3.3 10x6/uL (4.20-6.10); RDW 14.7 % (11.5-14.5); WBC 17.8 10x3/uL (4.8-10.8)
[2017-05-02 06:21] LABS: ALBUMIN 2.3 g/dL (3.4-5.0); ALKALINE PHOSPHATASE 86 U/L (46-116); ALT (SGPT) 49 U/L (10-68); BILIRUBIN - TOTAL 1.69 mg/dL (0.2-1.3); CALC OSMOLALITY 286 mosm/kg (275-300); CALCIUM 7.8 mg/dL (8.5-10.1); CARBON DIOXIDE 25.1 mmol/L (21.0-32.0); CHLORIDE - SERUM 105 mmol/L (98-107); CREATININE - SERUM 0.9 mg/dL (0.6-1.3); GLUCOSE 99 mg/dL (74-106); POTASSIUM - SERUM 3.7 mmol/L (3.5-5.1); PROTEIN - SERUM 5.5 g/dL (6.4-8.2); SODIUM 141 mmol/L (136-145); UREA NITROGEN 28 mg/dL (7-18); eGFR NON AFRICAN AMERICAN 89 mL/min (90-120)
--- NOTE | 2017-05-02 07:15 | NUR ---
REPORT RECIEVED FROM DIESEL ENGINEER NURSE. PT RESTING IN CHAIR QUIETLY. FULL ASSESSMENT COMPLETE PER FLOWSHEET. REFER FOR DETAILS. TPM VVI- 60 /V-SENSING ONLY. VSS. WILL CONT TO MONITOR FOR CHANGES THROUGHOUT SHIFT.
--- NOTE | 2017-05-02 09:15 | NUR ---
CONVERTED TO SR. RATE 75.
--- NOTE | 2017-05-02 10:30 | NUR ---
ASSISTED TO COMMODE. 200CC OF GREEN LIQUID STOOL NOTED.
--- NOTE | 2017-05-02 12:30 | NUR ---
SMALL CUP OF ICE CHIPS TAKEN TO PT. NGT REMAINS TO LIS WITH GREEN BILE NOTED TO CANISTER. DENIES NEEDS AT THIS TIME. WILL CONT TO ASSESS.
--- NOTE | 2017-05-02 14:30 | NUR ---
ASSISTED IN REPOSITIONING IN RECLINER. PILLOW PLACED UNDERNEATH BOTTOM. CALL LIGHT IN REACH. ICE CHIPS PLACED ON BEDSIDE TABLE.
--- NOTE | 2017-05-02 17:00 | NUR ---
DR. CASTAÑEDA AT BEDSIDE. INSTUCTED TO D/C NGT. REMOVED WITH NO ISSUES NOTED. TOLERATED WELL. INSTRUCTED TO START CLD.
--- NOTE | 2017-05-02 17:30 | NUR ---
REQUESTED TEA. TEA MADE AND TAKEN TO PT.
--- NOTE | 2017-05-02 19:00 | NUR ---
REPORT RECEIVED AND ASSESSMENT COMPLETE.D SEE FLOWSHEET FOR FULL DETAILS. PT IS POST OP CABG BY DR CALDWELL. CURRENTLY NSR; HOWEVER, DOES HAVE SOME ST ELEVATION. NO SIGNS OF DISTRESS OR DISCOMFORT. MD AWARE OF ST ELEVATION. TPM IN PLACE SENSING AT THIS TIME VVI 60 VMA 10. PT HAS BRUISING AROUND HARVEST SITES. WILL MONITOR
--- NOTE | 2017-05-02 19:01 | NUR ---
ORAL CARE DONE
--- NOTE | 2017-05-02 21:00 | NUR ---
2100 MEDICATION GIVEN. NO OTHER CHANGES IN STATUS AT THIS TIME. WILL MONITOR
--- NOTE | 2017-05-02 23:00 | NUR ---
NO CHANGES IN STATUS AT THIS TIME. WILL CONTINUE TO MONITOR
[2017-05-03] VITALS (24 sets, daily range): BP systolic 114–151; BP diastolic 48–84
--- NOTE | 2017-05-03 01:00 | NUR ---
NS REPLACED. NO OTHER CHANGES AT THIS TIME/ WILL MONITOR
--- NOTE | 2017-05-03 03:00 | NUR ---
REASSESSMENT COMPLETED. SEE FLOWSHEET FOR FULL DETAILS. MIDLINE DRSG CHANGED. NO OTHER CHANGES IN STATUS. WILL CONTINUE TO MONITOR
--- NOTE | 2017-05-03 05:00 | NUR ---
COMPLETE LINEN CHANGE PROVIDED AND MIDLINE AND SUBSTERNAL DRSG CHANGED AT THIS TIME. NO OTHER CHANGES. WILL CONTINUE TO MONITOR.
[2017-05-03 06:40] LABS: HEMOGLOBIN 10.1 g/dL (13.5-17.5); MCH 28.2 pg (26.0-34.0); MCHC 31.6 g/dL (31.0-37.0); MCV 89.4 fL (80.0-100.0); MEAN PLATELET VOLUME 10.3 fL (7.4-10.4); RBC 3.58 10x6/uL (4.20-6.10); RDW 14.9 % (11.5-14.5); WBC 22.2 10x3/uL (4.8-10.8)
[2017-05-03 07:04] LABS: ALBUMIN 2.5 g/dL (3.4-5.0); ALKALINE PHOSPHATASE 106 U/L (46-116); ALT (SGPT) 53 U/L (10-68); BILIRUBIN - TOTAL 2.03 mg/dL (0.2-1.3); CALC OSMOLALITY 285 mosm/kg (275-300); CALCIUM 7.9 mg/dL (8.5-10.1); CARBON DIOXIDE 25.2 mmol/L (21.0-32.0); CHLORIDE - SERUM 102 mmol/L (98-107); CREATININE - SERUM 0.9 mg/dL (0.6-1.3); POTASSIUM - SERUM 3.9 mmol/L (3.5-5.1); PROTEIN - SERUM 5.8 g/dL (6.4-8.2); SODIUM 141 mmol/L (136-145); UREA NITROGEN 27 mg/dL (7-18); eGFR NON AFRICAN AMERICAN 89 mL/min (90-120)
[2017-05-03 07:07] LABS: GLUCOSE 101 mg/dL (74-106)
--- NOTE | 2017-05-03 07:15 | NUR ---
REPORT RECIEVED FROM PIPE AND BOILER COVERS SUPERVISOR NURSE. PT RESTING IN CHAIR QUIETLY. FULL ASSESSMENT COMPLETE PER FLOWSHEET. REFER FOR DETAILS. TPM VVI- 60 /V-SENSING ONLY. VSS. WILL CONT TO MONITOR FOR CHANGES THROUGHOUT SHIFT.
--- NOTE | 2017-05-03 07:45 | NUR ---
DR. CASTAÑEDA AT BEDSIDE. UPDATE PROVIDED FROM BLACK LEATHER BUFFER NURSE. STATED TO INCREASE DIET TO FULL LIQUID.
--- NOTE | 2017-05-03 10:00 | NUR ---
Nutrition Follow Up: Pt was asleep at the time of RD visit. Pt interview deferred. Spoke with nursing who reported that NGT was pulled and diet has been advanced to full liquid for lunch today. Pt reports no nausea at this time. Pt is consuming 64% of clear liquid diet (will adv @ lunch). Wt loss noted. +BM 05/03/17. Meds noted. Labs reviewed. Rec continue advancing diet as tolerated. RD following.
--- NOTE | 2017-05-03 11:30 | NUR ---
DR. CALDWELL AT BEDSIDE. UPDATE PROVIDED.
--- NOTE | 2017-05-03 13:00 | NUR ---
ASSISTED WITH SPONGE BATH. FULL LINEN CHANGE PROVIDED. R LEG DRESSING CHANGED PER ORDERS. HAIR WASHED AND COMBED. ASSISTED PT WITH SHAVING OF FACE. CALL LIGHT IN REACH. WILL CONT TO ASSESS. FRESH ICE WATER PROVIDED.
--- NOTE | 2017-05-03 13:45 | NUR ---
PT AT BEDSIDE TO WALK WITH PT.
--- NOTE | 2017-05-03 15:00 | NUR ---
REASSESSMENT COMPLETE PER FLOWSHEET. CALL LIGHT IN REACH. DENIES NEED AT THIS TIME.
--- NOTE | 2017-05-03 19:00 | NUR ---
REPORT RECEIVED AND ASSESSMENT COMPLETED SEE FLOWSHEET FOR FULL DETAILS. PT IS NOW ON FULL LIQUID DIET PER DR CASTAÑEDA. WILL MONITOR THROUGHOUT SHIFT
--- NOTE | 2017-05-03 20:02 | NUR ---
ORAL CARE DONE
--- NOTE | 2017-05-03 21:00 | NUR ---
2100 MEDS GIVEN. NO CHANGES IN PT STATUS AT THIS TIME. WILL CONTINIUE TO MONITOR
--- NOTE | 2017-05-03 23:00 | NUR ---
REASSESSMENT COMPLETED. PT UNDERGOING SCHEDULED UPDRAFT TREATMENT AT THIS TIME. SEE FLOWSHEET FOR FULL ASSESSMENT DETAILS. WILL CONTINUE TO MONITOR.
[2017-05-04] VITALS (24 sets, daily range): BP systolic 109–132; BP diastolic 54–71
--- NOTE | 2017-05-04 01:00 | NUR ---
PT CONTINUES TO REST IN ROOM AT THIS TIME. VSS. NO CHANGES IN STATUS. WILL CONTINUE TO MONITOR
--- NOTE | 2017-05-04 03:00 | NUR ---
REASSESSMENT COMPLETED. SEE FLOWSHEET FOR FULL DETAILS. VSS. WILL CONTINUE TO MONITOR
--- NOTE | 2017-05-04 05:00 | NUR ---
PT ACCOMPANIED TO RADIOLOGY FOR PA AND LAT. KUB ALSO PERFORMED. NO OTHER CHANGES IN STATUS AT THIS TIME. WILL MONITOR
[2017-05-04 06:11] LABS: HEMOGLOBIN 8.7 g/dL (13.5-17.5); MCH 28.4 pg (26.0-34.0); MCHC 32.2 g/dL (31.0-37.0); MCV 88.2 fL (80.0-100.0); MEAN PLATELET VOLUME 9.7 fL (7.4-10.4); RBC 3.06 10x6/uL (4.20-6.10); RDW 14.8 % (11.5-14.5)
[2017-05-04 06:16] LABS: WBC 15.8 10x3/uL (4.8-10.8)
[2017-05-04 07:05] LABS: ALKALINE PHOSPHATASE 88 U/L (46-116); ALT (SGPT) 51 U/L (10-68); BILIRUBIN - TOTAL 1.38 mg/dL (0.2-1.3); CALC OSMOLALITY 280 mosm/kg (275-300); CALCIUM 7.2 mg/dL (8.5-10.1); CARBON DIOXIDE 26.6 mmol/L (21.0-32.0); CHLORIDE - SERUM 105 mmol/L (98-107); CREATININE - SERUM 0.9 mg/dL (0.6-1.3); GLUCOSE 101 mg/dL (74-106); POTASSIUM - SERUM 4.1 mmol/L (3.5-5.1); PROTEIN - SERUM 4.8 g/dL (6.4-8.2); SODIUM 139 mmol/L (136-145); eGFR NON AFRICAN AMERICAN 89 mL/min (90-120)
[2017-05-04 07:09] LABS: UREA NITROGEN 20 mg/dL (7-18)
--- NOTE | 2017-05-04 07:15 | NUR ---
REPORT RECIEVED FROM MANAGEMENT ACCOUNTANT NURSE. PT RESTING IN BED QUIETLY. NO S/SX OF ACUTE DISTRESS NOTED AT THIS TIME. SHIFT ASSESSMENT COMPLETE PER FLOWSHEET. REFER FOR DETAILS. STATES HE WANTS TO LAY IN BED FOR A FEW MORE MINUTES. CALL LIGHT IN REACH. DENIES FURTHER NEEDS AT THIS TIME. WILL CONT TO ASSESS FOR CHANGES.
--- NOTE | 2017-05-04 08:00 | NUR ---
SPOKE WITH SHANE, DAUGHTER. UPDATE PROVIDED.
--- NOTE | 2017-05-04 11:00 | NUR ---
REASSESSMENT COMPLETE PER FLOWSHEET. NO CHANGES NOTED AT THIS TIME.
--- NOTE | 2017-05-04 12:30 | NUR ---
DR. CALDWELL AT BEDSIDE. UPDATE PROVIDED.
--- NOTE | 2017-05-04 14:00 | NUR ---
ASSISTED TO BATHROOM. HAD SMALL LOOSE BM VOIDED 350CC OF BLUE URINE. ASSISTED BACK TO RECLINER. CALL LIGHT IN REACH. DENIES FURTHER NEEDS.
--- NOTE | 2017-05-04 15:00 | NUR ---
REASSESSMENT COMPLETE PER FLOWSHEET. NO CHANGES NOTED AT THIS TIME. WILL CONT TO ASSESS. CALL LIGHT IN REACH.
--- NOTE | 2017-05-04 16:30 | NUR ---
HAD LARGE LOOSE BM. FULL LINEN CHANGE PROVIDED. NEW RAO HOSE AND NON-SKID SOCKS PLACED.
--- NOTE | 2017-05-04 19:00 | NUR ---
REPORT RECEIVED AND ASSESSMENT COMPLETED. ASSISTED PT TO BED. PT NOW ON REGULAR DIET, AND HAS BEEN SWITCHED TO PO MEDS. WILL MONITOR THROUGHOUT SHIFT
--- NOTE | 2017-05-04 21:00 | NUR ---
2100 MEDS GIVEN. NO OTHER CHANGES IN STATUS. WILL CONTINUE TO MONITOR
--- NOTE | 2017-05-04 23:00 | NUR ---
REASSESSMENT COMPLETED. PT RESTING IN BED AT THIS TIME. NO CHANGES IN STATUS TO REPORT. WILL CONTINUE TO MONITOR
[2017-05-05] VITALS (23 sets, daily range): BP systolic 102–145; BP diastolic 46–80
--- NOTE | 2017-05-05 01:00 | NUR ---
NO CHANGES IN STATUS AT THIS TIME. WILL MONITOR
[2017-05-05 06:37] LABS: HEMATOCRIT 26.3 % (42.0-54.0); HEMOGLOBIN 8.4 g/dL (13.5-17.5); MCH 28.6 pg (26.0-34.0); MCHC 31.9 g/dL (31.0-37.0); MCV 89.5 fL (80.0-100.0); MEAN PLATELET VOLUME 10.1 fL (7.4-10.4); RBC 2.94 10x6/uL (4.20-6.10); RDW 15.2 % (11.5-14.5)
[2017-05-05 06:53] LABS: ALBUMIN 1.9 g/dL (3.4-5.0); ALKALINE PHOSPHATASE 78 U/L (46-116); ALT (SGPT) 51 U/L (10-68); BILIRUBIN - TOTAL 0.99 mg/dL (0.2-1.3); CALC OSMOLALITY 278 mosm/kg (275-300); CALCIUM 7.2 mg/dL (8.5-10.1); CARBON DIOXIDE 26.7 mmol/L (21.0-32.0); CHLORIDE - SERUM 104 mmol/L (98-107); CREATININE - SERUM 0.8 mg/dL (0.6-1.3); GLUCOSE 107 mg/dL (74-106); POTASSIUM - SERUM 4.2 mmol/L (3.5-5.1); PROTEIN - SERUM 4.5 g/dL (6.4-8.2); SODIUM 139 mmol/L (136-145); UREA NITROGEN 16 mg/dL (7-18); eGFR NON AFRICAN AMERICAN > 90 mL/min (90-120)
--- NOTE | 2017-05-05 10:15 | NUR ---
Nutrition Follow Up: Chart reviewed. Pt is eating 75% meal avg on a full liquid/regular diet (reg diet started dinner 05/04/17). Wt loss noted. +BM 05/04/17. Labs reviewed. Meds noted. Rec continue current diet. RD following.
--- NOTE | 2017-05-05 18:21 | NUR ---
ORAL CARE PERFORMED WITH PERIDEX ORDERED
--- NOTE | 2017-05-05 19:45 | NUR ---
AOX4, DENIES PAIN AT THIS TIME. RESPIRATIONS UNLABORED ON ROOM AIR, SPO2 95. LUNG SOUNDS CLEAR/DIMINISHED. S1S2 HEARD, PERIPHERAL PULSES PRESENT. TPM SECURE, VVI 60. MIDLINE CHEST INCISION WITH DRSG CDI. BOWEL SOUNDS ACTIVE IN ALL QUADRANTS, ABD DISTENED, NO C/O NAUSEA. RT LEG WITH DRSGS CDI. MIDLINE TO LT ARM, SWELLING AND TIGHTNESS NOTED TO ARM, PT C/O MILD TENDERNESS TO SITE. INFUSION STOPPED. RADIAL PULSE PRESENT, CAP REFILL LESS THAN 3 SECS. PIV INSERTED TO RIGHT WRIST.
--- NOTE | 2017-05-05 21:00 | NUR ---
NO VISITORS AT THIS TIME. WARM COMPRESS APPLIED TO LT ARM FOR COMFORT, ELEVATED ON PILLOW. VSS. FRESH WATER TO BEDSIDE. DENIES FURTHER NEEDS AT THIS TIME. CALL LIGHT WITHIN PT REACH. CPOC.
--- NOTE | 2017-05-05 23:40 | NUR ---
REASSESSMENT COMPLETE, NO NEW CHANGES AT THIS TIME. LT ARM REMAINS SWOLLEN/TIGHT, RADIAL PULSES PALPABLE, CAP REFILL LESS THAN 3 SECS. WARM COMPRESS PRESENT. VSS, RESPIRATIONS UNLABORED. DENIES NEEDS AT THIS TIME. CALL LIGHT WITHIN PT REACH. CPOC.
[2017-05-06] VITALS (20 sets, daily range): BP systolic 91–129; BP diastolic 47–75
--- NOTE | 2017-05-06 01:30 | NUR ---
NO NEW CHANGES AT THIS TIME, PT RESTING QUIETLY WITH VSS, NO S/S OF ACUTE DISTRESS. CALL LIGHT WITHIN PT REACH. CPOC.
--- NOTE | 2017-05-06 03:30 | NUR ---
REASSESSMENT COMPLETE, NO NEW CHANGES AT THIS TIME. VSS, PT RESTING QUIETLY. RESPIRATIONS UNLABORED. LT ARM ELEVATED, NO INCREASE IN SWELLING NOTED. DENIES NEEDS AT THIS TIME. CALL LIGHT AND BEDSIDE TABLE WITHIN PT REACH. CPOC.
[2017-05-06 06:26] LABS: HEMATOCRIT 25.1 % (42.0-54.0); HEMOGLOBIN 8.1 g/dL (13.5-17.5); MCH 28.3 pg (26.0-34.0); MCHC 32.3 g/dL (31.0-37.0); MCV 87.8 fL (80.0-100.0); MEAN PLATELET VOLUME 10.3 fL (7.4-10.4); RBC 2.86 10x6/uL (4.20-6.10); RDW 15.1 % (11.5-14.5); WBC 14.9 10x3/uL (4.8-10.8)
[2017-05-06 06:55] LABS: ALBUMIN 1.7 g/dL (3.4-5.0); ALKALINE PHOSPHATASE 75 U/L (46-116); ALT (SGPT) 52 U/L (10-68); BILIRUBIN - TOTAL 0.85 mg/dL (0.2-1.3); CALC OSMOLALITY 272 mosm/kg (275-300); CALCIUM 7.3 mg/dL (8.5-10.1); CARBON DIOXIDE 24.3 mmol/L (21.0-32.0); CHLORIDE - SERUM 104 mmol/L (98-107); CREATININE - SERUM 0.8 mg/dL (0.6-1.3); GLUCOSE 100 mg/dL (74-106); PROTEIN - SERUM 4.6 g/dL (6.4-8.2); SODIUM 136 mmol/L (136-145); UREA NITROGEN 14 mg/dL (7-18); eGFR NON AFRICAN AMERICAN > 90 mL/min (90-120)
--- NOTE | 2017-05-06 07:30 | NUR ---
L MIDLINE IV DC'D PER ORDER. CATHETER INTACT. DRESSING TO SITE. L ARM WARM AND PALPABLE RADIAL PULSE. 3+ EDEMA NOTED.
--- NOTE | 2017-05-06 14:26 | NUR ---
PT AWAKE. SP02 92 F102 21%. BILATERAL C/DIM BREATH SOUNDS. DEMONSTRATED STRONG EFFORT AND COMPLIANCE INCENTIVE 1750 VOLUME. RR 18. EQUALATERAL EXCURSION. PT NO S/S IMMEDIATE RESP DISTRESS. ISABELLA TX WELL
--- NOTE | 2017-05-06 16:29 | NUR ---
IV R WRIST INFILTRATED. DC'D. IV STARTED WITH 22G IN R FOREARM ON 1ST ATTEMPT. SITE DRESSED WITH OP-SITE AND FLUSHED.
--- NOTE | 2017-05-06 19:58 | NUR ---
PT AOX4, DENIES PAIN AT THIS TIME. RESPIRATIONS UNLABORED, LUNG SOUNDS CLEAR THROUGHOUT. SPO2 95 ON ROOM AIR. S1S2 HEARD, PERIPHERAL PULSES PRESENT. TPM SECURED, VVI 60, SENSING. BOWEL SOUNDS ACTIVE IN ALL QUADRANTS, DENIES NAUSEA. MIDLINE CHEST DRSG CDI, R LEG DRSGS CDI. LT ARM WITH SWELLING/TENDERNESS PRESENT, ELEVATED, WILL APPLY WARM COMPRESS. UP IN CHAIR, VSS. FRESH WATER TO BEDSIDE. DENIES FURTHER NEEDS AT THIS TIME. CALL LIGHT AND BEDSIDE TABLE WITHIN PT REACH. CPOC.
--- NOTE | 2017-05-06 20:17 | NUR ---
HS MEDS GIVEN, VSS. REPOSITIONED BACK IN BED, PARTIAL LINEN CHANGE COMPLETE. WARM COMPRESS APPLIED TO LT ARM. DENIES FURTHER NEEDS AT THIS TIME. CALL LIGHT WITHIN PT REACH. CPOC.
[2017-05-07] VITALS (15 sets, daily range): BP systolic 95–128; BP diastolic 49–73
--- NOTE | 2017-05-07 03:30 | NUR ---
REASSESSMENT COMPLETE, SEE FLOWSHEET FOR ALL FINDINGS. NO NEW CHANGES AT THIS TIME. VSS, DENIES PAIN. RESTING COMFORTABLY AT THIS TIME. CALL LIGHT WITHIN PT REACH. CPOC.
--- NOTE | 2017-05-07 04:20 | NUR ---
TO RADIOLOGY FOR PA/LAT.
--- NOTE | 2017-05-07 04:39 | NUR ---
BACK FROM RADIOLOGY. COMPLETE LINEN CHANGE. NEW GOWN AND R LEG DRSG CHANGE. VSS, DENIES PAIN. WARM COMPRESS APPLIED TO LT ARM, ELEVATED. DENIES NEEDS AT THIS TIME. CALL LIGHT WITHIN PT REACH. CPOC.
[2017-05-07 06:13] LABS: HEMATOCRIT 24.7 % (42.0-54.0); HEMOGLOBIN 7.9 g/dL (13.5-17.5); MCH 28.1 pg (26.0-34.0); MCV 87.9 fL (80.0-100.0); MEAN PLATELET VOLUME 10.5 fL (7.4-10.4); RBC 2.81 10x6/uL (4.20-6.10); RDW 15.2 % (11.5-14.5); WBC 12.2 10x3/uL (4.8-10.8)
[2017-05-07 06:18] LABS: PLATELET COUNT 91 10x3/uL (130-400)
[2017-05-07 06:28] LABS: ALBUMIN 1.7 g/dL (3.4-5.0); ALKALINE PHOSPHATASE 81 U/L (46-116); ALT (SGPT) 55 U/L (10-68); BILIRUBIN - TOTAL 0.67 mg/dL (0.2-1.3); CALC OSMOLALITY 273 mosm/kg (275-300); CALCIUM 7.3 mg/dL (8.5-10.1); CARBON DIOXIDE 26.3 mmol/L (21.0-32.0); CHLORIDE - SERUM 104 mmol/L (98-107); CREATININE - SERUM 0.9 mg/dL (0.6-1.3); GLUCOSE 113 mg/dL (74-106); POTASSIUM - SERUM 3.7 mmol/L (3.5-5.1); PROTEIN - SERUM 4.7 g/dL (6.4-8.2); SODIUM 136 mmol/L (136-145); UREA NITROGEN 16 mg/dL (7-18); eGFR NON AFRICAN AMERICAN 89 mL/min (90-120)
[2017-05-07 06:45] LABS: PLATELET ESTIMATE DECREASED
[2017-05-08] VITALS (25 sets, daily range): BP systolic 102–132; BP diastolic 45–69
[2017-05-08 06:24] LABS: HEMATOCRIT 23.2 % (42.0-54.0); MCH 28.4 pg (26.0-34.0); MCHC 32.3 g/dL (31.0-37.0); MCV 87.9 fL (80.0-100.0); MEAN PLATELET VOLUME 10.7 fL (7.4-10.4); RBC 2.64 10x6/uL (4.20-6.10); RDW 15.1 % (11.5-14.5); WBC 11.1 10x3/uL (4.8-10.8)
[2017-05-08 06:32] LABS: HEMOGLOBIN 7.5 g/dL (13.5-17.5)
[2017-05-08 06:49] LABS: ALBUMIN 1.7 g/dL (3.4-5.0); ALKALINE PHOSPHATASE 87 U/L (46-116); ALT (SGPT) 47 U/L (10-68); BILIRUBIN - TOTAL 0.63 mg/dL (0.2-1.3); CALC OSMOLALITY 277 mosm/kg (275-300); CALCIUM 7.4 mg/dL (8.5-10.1); CARBON DIOXIDE 26.3 mmol/L (21.0-32.0); CHLORIDE - SERUM 104 mmol/L (98-107); CREATININE - SERUM 0.9 mg/dL (0.6-1.3); GLUCOSE 116 mg/dL (74-106); POTASSIUM - SERUM 3.4 mmol/L (3.5-5.1); PROTEIN - SERUM 4.7 g/dL (6.4-8.2); SODIUM 138 mmol/L (136-145); UREA NITROGEN 16 mg/dL (7-18); eGFR NON AFRICAN AMERICAN 89 mL/min (90-120)
--- NOTE | 2017-05-08 07:15 | NUR ---
REPORT RECIEVED FROM AQUATIC LABORER NURSE. PT RESTING IN BED QUIETLY. FULL ASSESSMENT COMPLETE PER FLOWSHEET. REFER FOR DETAILS. ASSISTED TO RECLINER FOR BREAKFAST. CALL LIGHT PLACED IN REACH. VSS. TPM VVI 60. WIRES INTACT AND UNDERNEATH DRESSING. WILL CONT PLAN OF CARE.
--- NOTE | 2017-05-08 09:00 | NUR ---
NO CHANGES NOTED. WILL CONT TO ASSESS. VSS.
--- NOTE | 2017-05-08 09:30 | NUR ---
Patient Name: JOSÉ MIGUEL SANDERS Encounter No: [id number] : 1945 Primary Insurance: MEDICARE A & B Anticipated DC Date: 05-09-2017 Planned Disposition: Home with Home Health External Planned Provider: [facility] Jules CHAUDHRY follow-up note: CM met with patient - discussed home health services. He is agreeable to referral at discharge. SAKSHI signed for [facility]. Initial referral will be sent today. Patient in agreement with discharge plan. Case management will follow and assist as needed. Keiry Lui
--- NOTE | 2017-05-08 11:00 | NUR ---
REASSESSMENT COMPLETE PER FLOWSHEET. NO CHANGES NOTED AT THIS TIME. CALL LIGHT IN REACH.
--- NOTE | 2017-05-08 12:26 | NUR ---
Nutrition follow-up: Diet: Regular as tolerated PO intake ~75% average of last 3 meals Labs reviewed Wt: 223# Will continue to provide food choices and honor food preferences. RDN following.
--- NOTE | 2017-05-08 12:30 | NUR ---
ASSISTED WITH BATH. HAIR WASHED. COMPLETE LINEN CHANGE PROVIDED.
--- NOTE | 2017-05-08 13:00 | NUR ---
WALKING DOWN UNIT HALLWAY. PORTABLE TELE ON. VSS.
--- NOTE | 2017-05-08 13:45 | NUR ---
JOI PERKINS AT BEDSIDE. TPM WIRES PULLED. PT INSTRUCTED TO REMAIN IN BED FOR THIRTY MINS. VERBALIZED UNDERSTANDING.
--- NOTE | 2017-05-08 15:00 | NUR ---
REASSESSMENT COMPLETE. NO CHANGES.
--- NOTE | 2017-05-08 16:00 | NUR ---
NEED LARGE BORE PIV FOR PRBC. 20G PIV TO R AC PLACED. X2 STICKS.
--- NOTE | 2017-05-08 16:30 | NUR ---
LEFT ARM ELEVATED ABOVE HEART WITH PILLOWS. WARM BLANKET PLACED ON ARM. AWAITING K-PAD.
--- NOTE | 2017-05-08 16:30 | NUR ---
[employer] CALLED FOR K-PAD.
--- NOTE | 2017-05-08 17:00 | NUR ---
K-PAD WAS BROUGHT TO UNIT. ACTUAL PAD THAT ATTACHES TO MACHINE IS NOT COMPATIBLE. [employer] CALLED, BUT NO ANSWER.
--- NOTE | 2017-05-08 17:15 | NUR ---
TORY, [employer] TEACHER CALLED AND ASKED IF SHE COULD BRING COMPATIBLE PAD FOR K-PAD MACHINE.
--- NOTE | 2017-05-08 17:30 | NUR ---
FIRST UNIT OF PRBC STARTED. WILL MONITOR FOR ADVERSE REACTION. VSS AT THIS TIME.
--- NOTE | 2017-05-08 18:00 | NUR ---
NO CHANGES NOTED AT THIS TIME. WILL CONT TO ASSESS.
--- NOTE | 2017-05-08 18:35 | NUR ---
ASTROPHYSICS PROFESSOR CALLED AGAIN REGARDING K-PAD.
[2017-05-09] VITALS (11 sets, daily range): BP systolic 108–134; BP diastolic 51–64
[2017-05-09 06:23] LABS: MCH 28.3 pg (26.0-34.0); MCHC 32.7 g/dL (31.0-37.0); MCV 86.3 fL (80.0-100.0); MEAN PLATELET VOLUME 10.5 fL (7.4-10.4); RDW 15.4 % (11.5-14.5); WBC 10.1 10x3/uL (4.8-10.8)
[2017-05-09 06:34] LABS: HEMATOCRIT 28.4 % (42.0-54.0); HEMOGLOBIN 9.3 g/dL (13.5-17.5); RBC 3.29 10x6/uL (4.20-6.10)
[2017-05-09 06:39] LABS: ALBUMIN 1.7 g/dL (3.4-5.0); ALKALINE PHOSPHATASE 103 U/L (46-116); ALT (SGPT) 66 U/L (10-68); CALC OSMOLALITY 271 mosm/kg (275-300); CALCIUM 7.2 mg/dL (8.5-10.1); CARBON DIOXIDE 27.1 mmol/L (21.0-32.0); CHLORIDE - SERUM 102 mmol/L (98-107); CREATININE - SERUM 0.9 mg/dL (0.6-1.3); GLUCOSE 100 mg/dL (74-106); POTASSIUM - SERUM 3.2 mmol/L (3.5-5.1); PROTEIN - SERUM 4.8 g/dL (6.4-8.2); SODIUM 136 mmol/L (136-145); UREA NITROGEN 12 mg/dL (7-18); eGFR NON AFRICAN AMERICAN 89 mL/min (90-120)
[2017-05-09] MEDS ORDERED: ELIQUIS5 MG PO (08:07)
[2017-05-09] MEDS ORDERED: CORDARONE200 MG PO (08:08)
[2017-05-09] MEDS ORDERED: HEMOCYTE PLUS C1 CAP PO (08:08)
[2017-05-09] MEDS ORDERED: COLACE100 MG PO (08:10)
[2017-05-09] MEDS ORDERED: LASIX40 MG PO (08:11)
[2017-05-09] MEDS ORDERED: SENOKOT-S TABLE1 TAB PO (08:11)
[2017-05-09] MEDS ORDERED: KLOR-CON M2020 MEQ PO (08:12)
--- NOTE | 2017-05-09 09:00 | NUR ---
GREGORIO RN IN ROOM REMOVING LORI FROM LEG. IV DCD WITH CATH INTACT. DISCHARGE DONE. FUV GIVEN TO PT. VOICES NO CO AT TIME.
--- NOTE | 2017-05-09 10:23 | NUR ---
Patient Name: JOSÉ MIGUEL SANDERS Encounter No: [id number] : 1945 Primary Insurance: MEDICARE A & B Anticipated DC Date: 05-09-2017 Planned Disposition: Home with Home Health External Planned Provider: [facility] DCP follow-up note: DC order rec'd. Referral faxed to [facility]. Advised Ashli to contact Dr. Rodriguez for home health orders. Patient and family in agreement with discharge plan. No changes to plan. Case management will follow and assist as needed. Keiry Lui
--- NOTE | 2017-05-09 11:30 | NUR ---
EATING LUNCH NO CO AT TIME.
--- NOTE | 2017-05-09 12:14 | TEE ---
PATIENT:JOSÉ MIGUEL SANDERS MEDICAL RECORD: [id number] LOCATION:[place] [address] AGE OF PATIENT: 71 ADMISSION DATE: 04/24/17 SEX: M REFERRING PHYSICIAN: INTERPRETING PHYSICIAN: MINDI TORRES MD TRANSESOPHAGEAL ECHOCARDIOGRAM JOSE EDUARDO CHARGE Y INDICATIONS: CABG PREMEDICATIONS: PATIENT'S RESPONSE PROCEDURE DOPPLER MEASUREMENTS: LVIT LA PA RA LVOT RVOT Asc. Ao AV Gradient Peak AV Mean AV Area MV Gradient Peak MV Mean MV Area INTERPRETATION: LVd: 3.5 cm LVs: 1.9 cm Doppler: 2-D: COLOR FLOW DOPPLER NORMAL SALINE STUDY: MISCELLANOUS: DIAGNOSIS: PLAN: Sample Dye Mixer:3 Dr. Cooper Rope Silica Machine Operator: Amina RODRIGUEZ COMMENTS: DATE OF SERVICE: 04/24/2017 Transesophageal echo evaluation of valvular structures during bypass surgery. FINDINGS: 1. Left ventricular chamber size is within normal limits. Left ventricular systolic function is normal. Overall ejection fraction is estimated at 55%. 2. Left atrium, right atrium and right ventricular chamber sizes are within normal limits. TRANSESOPHAGEAL ECHOCARDIOGRAM REPORT [id number] JOSÉ MIGUEL SANDERS 3. Valvular structures have normal structure motion. 4. Doppler interrogation reveals only trace to mild mitral regurgitation, no other valvular insufficiency or stenosis. 5. No evidence of pericardial effusion or left ventricular thrombus. TRANSINT:[id number] Voice Confirmation ID: [id number] DOCUMENT ID: [id number] at 1214 CC: [id number] DICTATION DATE: 04/24/17 1227 BRILLIANDEER LOPPER: 04/24/17 1523 ADM IN [place] [id number] [place] [address]
--- NOTE | 2017-05-09 14:01 | NUR ---
PT LEFT WITH FRIEND. VOICES NO CO AT TIME.
== END 2017-05-09 14:02 | disposition home health service (06) | DRG 236 ==
LOC: D.SDCHOLD 05:27 → D.CVICU 05:27 → D.SDCHOLD 07:30 → D.CVICU 13:39
PROVIDERS: ADMIT Internal Medicine Cardiovascular Disease
PROC: 021209W Bypass Coronary Artery, Three Arteries from Aorta with Autologous Venous Tissue, Open Approach (ICD-10-PCS; 2017-04-24)
PROC: 06BP0ZZ Excision of Right Saphenous Vein, Open Approach (ICD-10-PCS; 2017-04-24)
PROC: 5A1221Z Performance of Cardiac Output, Continuous (ICD-10-PCS; 2017-04-24)
PROC: B245ZZ4 Ultrasonography of Left Heart, Transesophageal (ICD-10-PCS; 2017-04-24)
PROC: 02100AC Bypass Coronary Artery, One Artery from Thoracic Artery with Autologous Arterial Tissue, Open Approach (ICD-10-PCS; principal; 2017-04-24 07:30)
PROC: 05HC33Z Insertion of Infusion Device into Left Basilic Vein, Percutaneous Approach (ICD-10-PCS; 2017-05-01)
PROC: B54NZZA Ultrasonography of Left Upper Extremity Veins, Guidance (ICD-10-PCS; 2017-05-01)
DX: I25.119 Atherosclerotic heart disease of native coronary artery with unspecified angina pectoris (principal); K56.7 Ileus, unspecified; T81.72XA Complication of vein following a procedure, not elsewhere classified, initial encounter; E78.00 Pure hypercholesterolemia, unspecified; I10 Essential (primary) hypertension; Z87.891 Personal history of nicotine dependence; I48.0 Paroxysmal atrial fibrillation; I80.8 Phlebitis and thrombophlebitis of other sites

== ENCOUNTER → 2017-05-24 13:10 | Outpatient (CLI) | payer MEDICARE, OTHER ==
[2017-04-25 10:51] VITALS: BMI 31.2
[~2017-05-24 13:10] MED LIST changes: +COLACE100 MG PO; +CORDARONE200 MG PO; +ELIQUIS5 MG PO; +HEMOCYTE PLUS C1 CAP PO; +KLOR-CON M2020 MEQ PO; +LASIX40 MG PO; +SENOKOT-S TABLE1 TAB PO
[2017-05-24 14:12] LABS: HEMATOCRIT 38.7 % (42.0-54.0); MCH 28.2 pg (26.0-34.0); MCV 90.8 fL (80.0-100.0); RBC 4.26 10x6/uL (4.20-6.10); RDW 15.4 % (11.5-14.5); WBC 7.2 10x3/uL (4.8-10.8)
[2017-05-24 14:20] LABS: ANION GAP 9.1 mmol/L (8-16); CALCIUM 9.2 mg/dL (8.5-10.1); CARBON DIOXIDE 31.7 mmol/L (21.0-32.0); CREATININE - SERUM 1.1 mg/dL (0.6-1.3); POTASSIUM - SERUM 3.8 mmol/L (3.5-5.1)
== END | disposition home or self-care (01) ==
LOC: D.RAD 12:31
PROVIDERS: Internal Medicine Cardiovascular Disease
DX: J90 Pleural effusion, not elsewhere classified (principal); D64.9 Anemia, unspecified